=== PATIENT | male | born 1935 | race Caucasian/White ===

== ENCOUNTER 2016-07-24 11:05 | Inpatient (IN) | payer OTHER ==
[2016-07-24] VITALS (34 sets, daily range): BP systolic 81–137; BP diastolic 48–106
[~2016-07-24] VITALS: Ht 172.7 cm; Wt 117.0 kg
--- NOTE | ~2016-07-24 | EKG ---
[place] [address] [facility] [employer] [address] ELECTROCARDIOGRAM REPORT Name: EMMETT BASS Room #: 213-P [facility] IN M.R.#: [id number] Admission: 07/24/16 Attend Phys: Shai Nascimento MD Discharge: Date of : 35 Report #: [id number] THIS REPORT FOR: //name// [facility] Test Date: 2016-07-27 Test Time: 07:25:26 Pat Name: EMMETT BASS Department: Room: 213 Gender: M Punch Operator: SOULEYMANE : 1935 Requested By: Tracey Joshua Order Number: [id number] MD: Adriano Heaton Measurements Intervals [place] Rate: 100 P: NM: QRS: -30 QRSD: 162 T: 122 QT: 398 QTc: 514 Interpretive Statements Atrial fibrillation Ventricular premature complex IVCD, consider atypical LBBB Compared to ECG 07/24/2016 11:33:55 Ventricular premature complex(es) now present Electronically Signed On 07-28-2016 14:14:21 WHEEL MOLDER by dAriano Heaton [email or web address] <ELECTRONICALLY SIGNED> By: Adriano Heaton MD, [facility] 07/28/16 1414 4 4 Adriano Heaton MD, [facility] /EPI
--- NOTE | ~2016-07-24 | HC ---
[facility] [place] [address] CONSULTATION Name: EMMETT ABSS Room #: 245-P ADM IN .R.#: [id number] Admission: 07/24/16 Attend Phys: Shai Nascimento MD Discharge: Date of : 35 Report #: [id number] THIS REPORT FOR: //name// CC: Charlie Baldwin MD DATE OF SERVICE: 07/26/2016 SURGEON: Stone Haines M.D. REASON FOR CONSULTATION: Epistaxis. HISTORY OF PRESENT ILLNESS: The patient is an 81-year-old gentleman admitted on July 24 after a week or so of progressive weakness and rapid weight gain, felt secondary to fluid retention. The patient had tried to get up from his bed and became wedged between his bed and wall, unable to move. His called the nonemergent line for EMS who helped him moved to the car for transport to the hospital. The patient refused ambulance. He has been admitted and since admission has been having ongoing epistaxis. His nurse states that this has been a fair amount and relatively steady. His history is significant for epistaxis that he had seen my partner Dr. Baldwin in the office a week ago. An attempt was made to cauterize what the patient refused. He was treated with Bactroban ointment b.i.d. but despite this, this continued to bleed. The patient is anticoagulated on Xarelto and seems to be bleeding from both sides of the nose. He does not give a history of previous nasal trauma or nasal surgery. PAST MEDICAL HISTORY: Significant for hyperkalemia, acute renal failure, hypotension, chronic back pain, nonischemic cardiomyopathy, moderate aortic stenosis, hypertension and atrial fibrillation. PAST SURGICAL HISTORY: Cholecystectomy, bilateral knee replacement, shoulder surgery times 3, prostate surgery and AICD. MEDICATIONS: Contained in his MAR and were reviewed. ALLERGIES: To TIZANIDINE with confusion. REVIEW OF SYSTEMS: The patient is complaining of obstructive apnea. He has [facility] [address] [place] [address] CONSULTATION Name: EMMETT BASS Room #: 245-P [facility] IN ..#: [id number] Admission: 07/24/16 Attend Phys: Shai Nascimento MD Discharge: Date of : 35 Report #: [id number] with seeing him. He has obesity. He is complaining today of some back pain, was lying in bed in complaining of nasal bleeding. FAMILY HISTORY: Significant for cancer and hypertension. SOCIAL HISTORY: He lives with his . She is present in the room for history. The patient is a longtime smoker, quitting about a year ago. He does not use alcohol. Lives at home. PHYSICAL EXAMINATION: GENERAL: Shows a well-developed, obese 81-year-old male appearing his stated age. He is awake and alert. There is a CPAP unit on with a nasal mask. This was removed, so we could converse. VITAL SIGNS: Show a temperature of 98.2, pulse of 100, blood pressure 80/56 and the patient is on room air at 100%. HEENT: He is normocephalic. Pupils equal, round and reactive to light. Nasal exam shows a deviated septum to the right. Severe excoriation of both sides of the septum, left greater than right with active bleeding and blood clots in place. Oral cavity shows no mucosal lesions. There is some blood trickling in the posterior pharynx. Neck: Shows a midline trachea. There is no adenopathy or other masses. LABORATORY DATA: CBC shows a white count of 11,900 with a hemoglobin of 8.7 and this is decreased from admission of 9.4. Basic metabolic panel shows an elevated sodium of 150, potassium of 4.3, BUN of 71 and creatinine of 1.3. ASSESSMENT: 1. Epistaxis, bilateral, anterior. 2. Chronic anticoagulation with Xarelto. 3. Atrial fibrillation. 4. Aortic stenosis. 5. Chronic nonischemic cardiomyopathy. 6. Obesity. 7. Generalized weakness. 8. Acute kidney injury. PLAN: 1. Discussion with his in light of the extreme surface area of bleeding on both sides of the septum. The patient would be best treated by placement of Rapid Rhino epistaxis balloons for a period of 3-5 days to let this heal. The patient is currently on Xarelto and we will defer to his historic sites registrar if there are any other options for anticoagulation. The patient will need to be on any staphylococcal antibiotic coverage while balloons are in place. As the patient has no PENICILLIN allergies, I would suggest Unasyn 3 g q. 6. 2. Keep head of bed elevated. [address] [address] CONSULTATION Name: EMMETT BASS Room #: 245-P [facility] IN M.R.#: [id number] Admission: 07/24/16 Attend Phys: Shai Nascimento MD Discharge: Date of : 35 Report #: [id number] 3. The patient will need to switch from a nasal CPAP mask to a full CPAP mask while the nasal balloons are in place. We will plan to follow up in 3-5 days as long as a bleeding is controlled for removal. I appreciate the consultation and the ability to share in his care. <ELECTRONICALLY SIGNED> By: Stone Haines MD 07/27/16 1234 1553 2343 Stone Haines MD /nt
--- NOTE | ~2016-07-24 | EKG ---
[place] [address] [facility] [place] [place] [address] ELECTROCARDIOGRAM REPORT Name: EMMETT BASS Room #: 170-3 ADM IN M.R.#: [id number] Admission: 07/24/16 Attend Phys: Shai Nascimento MD Discharge: Date of : 35 Report #: [id number] THIS REPORT FOR: //name// [facility] ED Test Date: 2016-07-24 Test Time: 11:33:55 Pat Name: EMMETT BASS Department: Room: 170 Gender: M Director Of Software Engineering: MZOOK : 1935 Requested By: Ky Dubois Order Number: [id number] MD: Adriano Heaton Measurements Intervals [place] Rate: 84 P: 0 NC: 151 QRS: -39 QRSD: 158 T: 115 QT: 398 QTc: 471 Interpretive Statements Atrial fibrillation Left bundle branch block Compared to ECG 02/02/2016 10:55:21 Ventricular premature complex(es) no longer present Electronically Signed On 07-24-2016 12:53:05 ADOBE MAKER by Adriano Heaton [email or web address] <ELECTRONICALLY SIGNED> By: Adriano Heaton MD, [facility] 07/24/16 1253 1133 1133 Adriano Heaton MD, [facility] /EPI
--- NOTE | ~2016-07-24 | HC ---
[facility] [place] [address] CONSULTATION Name: EMMETT BASS Room #: 245-P ADM IN .R.#: [id number] Admission: 07/24/16 Attend Phys: Shai Nascimento MD Discharge: Date of : 35 Report #: [id number] THIS REPORT FOR: //name// CC: Charlie Nascimento DATE OF SERVICE: 07/24/2016 REASON FOR CONSULTATION: Elevated creatinine and acute kidney injury. HISTORY OF PRESENT ILLNESS: This is an 81-year-old male who was brought in by ambulance today with progressive weakness. He says he has felt poorly over the past week or so, has gotten tremendously worse over the past couple of days. He has got the so bad that he is unable to get up out of bed. He actually lodged himself next to his bed in between the wall earlier today and hence required the paramedics to extract him. Upon arrival in the emergency room, he was found to be very hypotensive. Blood pressures were recorded as low as 59/28 with some volume that has improved. He is now in the ICU and he has gotten 2.2 liters of IV fluids. He has also been put on Levophed at about 7 mcg per minute. He finally got a blood pressure of 102/60 with that. In talking to the patient, he is awake, alert and oriented. He says he has been feeling worse over the past week if not longer . He was having previous episodes of some congestive heart failure symptoms, we had been put on increased amount of diuretics and that appears to have helped. He has been breathing better and he has passed a lot of urine, but now over the past few days, he has been getting progressively weak. He is unaware of what his blood pressure has been running at home. He denies fevers, chills or sweats. He has some dyspnea even at rest. He denies chest pain. He says he has not been having any peripheral edema. He is unaware that if his AICD has discharged at all. From a renal standpoint, he is unaware of previous elevated creatinine levels. In reviewing his labs, he chronically runs creatinine level of about 1.3 to 1.4 and that has been present throughout the past 6 months or so. He did have a creatinine level up to 2.5 by June 26 on the lab we have available. He tells me years ago he had some kidney stones, but those were uncomplicated. He does not think he has had one for years. He has been documented on multiple scans to have acquired renal cysts. I have reviewed a couple of his CT scans from the recent year or so and show fairly atrophic renal parenchyma with several large required renal cysts. 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 This has never been diagnosed fully. Additionally, in talking with the patient, he has had some left low lateral abdominal pain as well as some left inguinal area pain. He says he does not feel like it did when he had previous kidney stones. He is unaware of dysuria. [facility] [address] [place] [address] CONSULTATION Name: EMMETT BASS Room #: 245-P ADM IN M.R.#: [id number] Admission: 07/24/16 Attend Phys: Shai Nascimento MD Discharge: Date of : 35 Report #: [id number] He is unaware of hematuria. PAST MEDICAL HISTORY: Severe cardiomyopathy. It looks like he has an ejection fraction of 35%. He had the AICD placed on 06/26/2016. He does have a chronic pain syndrome. He has previous cholecystectomy, bilateral shoulder surgery, bilateral knee replacement. He has obstructive sleep apnea, again has been on nasal BiPAP for at least 20 years if not longer. He has chronic atrial fib and his rhythm does appear to be irregular at this time. MEDICATIONS ON ADMISSION: Include torsemide 20 mg daily, spironolactone 25 mg daily, multivitamin daily, Entresto which is sacubitril/valsartan 24/26 mg b.i.d., Xarelto 15 mg daily, oxycodone for pain, multivitamin daily, Zyrtec 10 mg daily, carvedilol 12.5 mg b.i.d., aspirin 81 mg daily, allopurinol 300 mg daily. ALLERGIES: No known medical allergies. FAMILY HISTORY: Negative for any renal disease. SOCIAL HISTORY: The patient is . His helps with his medications and does most of his medical care related issues. 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 REVIEW OF SYSTEMS: Recently he has been more secondary. He denies chest pain or palpitations. He has dyspnea with an exertion. He has some dry cough. He has also had some recurring epistaxis and then coughs blood throat. Appetite has been down. He denies nausea or vomiting, no diarrhea. He tends towards constipation. He reports no dysuria, hematuria, or urinary urgency or frequency. He says he has not had much in the way of edema recently. He is unaware of fevers, chills or sweats. He denies use of any other medications other than those listed. PHYSICAL EXAMINATION: GENERAL: Elderly appearing male, currently awake, alert and oriented, although is somewhat lethargic and certainly appears to be acutely ill. VITAL SIGNS: Blood pressure 102/60, heart rate is 107, oxygen saturation 98%. HEENT: Shows pupils are equal and reactive. Sclerae nonicteric. Oral mucosa is dry. There are some dry blood around his lip and mouth. NECK: Shows no JVD. Neck is supple, see no adenopathy. CHEST: Show shallow respirations bilaterally. He has wearing his nasal CPAP. I hear no rales, rhonchi or wheezes. HEART: Has an irregular rhythm, no gallop. ABDOMEN: Has active bowel sounds, soft and nontender at this time. I cannot palpate organomegaly or masses. No evidence of hernia. EXTREMITIES: Show no peripheral edema. He has 1+ pedal pulses. [address] [address] CONSULTATION Name: EMMETT BASS Room #: 245-P ADM IN .R.#: [id number] Admission: 07/24/16 Attend Phys: Shai Nascimento MD Discharge: Date of : 35 Report #: [id number] LABORATORY DATA: Sodium 139, potassium 5.4, chloride 106, bicarbonate 18, BUN 160, creatinine 3.4, glucose 120, calcium 9.3. Troponin less than 0.04. INR is 1.3. White count 10.9, hemoglobin 10.9, hematocrit 28.5, platelets 104,000. Differential on the white count 83 neutrophils, 2 bands, 8 lymphs, 7 monos. Urinalysis collected but is pending at this time. RADIOLOGICAL STUDIES: 1. I reviewed his chest x-ray which showed clear lung keith bilaterally. 2. I reviewed his CT scan which showed kidney changes as noted above. ASSESSMENT: 1. Acute kidney injury. I think most of this is due to hypotension and hence renal under perfusion. With his very low blood pressure plus the combination of medications, he is not perfusing and certainly not clearing. 2. Hypotension, severe. He has gotten nearly 2.5 liters of fluids and blood pressures trending better, some Levophed was added and seemed to kick him over the top to an acceptable blood pressure. His volume status looks pretty good on exam at this time. He is certainly not volume overloaded, but we do not want to get him to that point either. At this point, we will keep him on moderate IV fluids and use the Levophed to help keep his pressure up. Also, in a patient with left renal mass, we need to be concerned about renal adrenal insufficiency. I will check his stat cortisol level. 3. Chronic kidney disease, likely stage 3. Again, he has substantial renal atrophy and multiple acquired renal cysts, none of which need to be addressed differently at this time. 4. Cardiomyopathy, chronic ejection fraction of 35% with a recent placement of an AICD. No ischemic changes at this time. 5. Hyperkalemia, mild. We will correct with additional volume loading. PLAN: 1. After the current liters in, we will cut his IV fluids down to 100 mL an hour. 2. Continue Levophed. 3. Check stat cortisol level. We will replace some cortisol, pending his response in the near term. 4. Recheck labs to make sure his potassium level is coming down. 5. I expect now that his volumes are better, the Levophed will be effective. I would note he is not septic or infected at this time. 6. We will follow along closely in the care of this patient. <ELECTRONICALLY SIGNED> By: Francis Be MD 07/25/16 0854 1828 2351 Francis Be MD /nt
--- NOTE | ~2016-07-24 | 2DMMODE ---
[facility] [place] [address] 2 D/M-MODE ECHOCARDIOGRAM Name: EMMETT BASS Room #: 245-P [facility] IN .#: [id number] Admission: 07/24/16 Attend Phys: Shai Nascimento MD Discharge: Date of : 35 Date of Service: 07/26/16 1504 Report #: [id number] THIS REPORT FOR: //name// Transthoracic Echocardiography Ordering physician: Tracey Joshua Referring physician: MD Maeve Benavides, Tracey Shankar [employer] Assistant: Cherrie Adams Indications/History: Nonischemic cardiomyopathy. Hx: Pacemaker/ICD, HTN, Afib, cardiomyopathy 25-30% 01/2016. BP: 80 / 56 HR: 97bpm Height: 68in Weight: 254.5lb Study data: M-mode, complete 2D, complete spectral Doppler, and color Doppler. Location: Bedside. Routine. Image quality was poor. 2D measurements Normal Normal LVID ED 65.3mm 36-57 IVS ED 10.8mm 6-11 LVID ES 58.6mm 23-40 LVPW ED 11.1mm 6-11 LA volume 64ml/m2 16-28 AoRoot diam 39.9mm 21-37 index ED LVOT diameter 25mm 18-23 Findings: Left ventricle: The cavity size was moderately dilated. Wall thickness was normal. Systolic function was severely reduced. The estimated ejection fraction was in the range of 25% to 30%. Right ventricle: The cavity size was dilated. Systolic function was normal. Right atrium: The atrium was moderately dilated. Pacer wire or catheter noted in right atrium. Left atrium: The atrium was severely dilated. Volume index: 64ml/m2 (S). Aortic valve: Structurally normal valve. Moderately sclerotic leaflets. Doppler: There was no stenosis. [facility] [address] [place] [address] 2 D/M-MODE ECHOCARDIOGRAM Name: EMMETT BASS Room #: 245-P [facility] IN Lanre#: [id number] Admission: 07/24/16 Attend Phys: Shai Nascimento MD Discharge: Date of : 35 Date of Service: 07/26/16 1504 Report #: [id number] Moderate regurgitation. Peak velocity: 204.3cm/s (S). Peak gradient: 16.7mm Hg (S). Mitral valve: Mildly thickened leaflets . Doppler: There was no evidence for stenosis. Mild to moderate regurgitation. Peak E-wave velocity: 85.3cm/s. Peak gradient: 2.9mm Hg (D). Tricuspid valve: Structurally normal valve. Doppler: There was no evidence for stenosis. Moderate regurgitation. Regurgitant peak velocity: 228cm/s. Peak RV-RA gradient: 21mm Hg (S). Pulmonic valve: Structurally normal valve. Doppler: There was no evidence for stenosis. No regurgitation. Pericardium: There was no pericardial effusion. 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 Ascending aorta was dilated at 4.1cm, Pulmonary artery: Systolic pressure was estimated to be 36mm Hg. Diastolic function: The study is not technically sufficient to allow evaluation of LV diastolic function. Systemic veins: Inferior vena cava: The vessel was dilated; respirophasic changes in dimension were absent. Conclusions 1. Procedure narrative: Image quality was poor. 2. Left ventricle: The cavity size was moderately dilated. Wall thickness was normal. Systolic function was severely reduced. The estimated ejection fraction was in the range of 25% to 30%. 3. Right ventricle: The cavity size was dilated. 4. Right atrium: The atrium was moderately dilated. Pacer wire or catheter noted in right atrium. 5. Left atrium: The atrium was severely dilated. 6. Aortic valve: Structurally normal valve. Moderately sclerotic leaflets. Moderate regurgitation. 7. Mitral valve: Mildly thickened leaflets . Mild to moderate regurgitation. 8. Tricuspid valve: Structurally normal valve. Moderate regurgitation. 9. 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 Ascending aorta was dilated at 4.1cm, 10. Pulmonary arteries: Systolic pressure was estimated to be 36mm Hg. [facility] [place] [address] 2 D/M-MODE ECHOCARDIOGRAM Name: EMMETT BASS Room #: 245-P [facility] IN [facility]#: [id number] Admission: 07/24/16 Attend Phys: Shai Nascimento MD Discharge: Date of : 35 Date of Service: 07/26/16 1504 Report #: [id number] 11. Inferior vena cava: The vessel was dilated; respirophasic changes in dimension were absent. <ELECTRONICALLY SIGNED> By: Zachary Mulligan MD 07/26/16 1621 1504 162 Zachary Mulligan MD /rudy
--- NOTE | ~2016-07-24 | HC ---
[facility] [place] [address] CONSULTATION Name: EMMETT BASS Room #: 215-P [facility] IN ..#: [id number] Admission: 07/24/16 Attend Phys: Shai Nascimento MD Discharge: 07/31/16 Date of : 35 Report #: [id number] THIS REPORT FOR: //name// CC: Charlie Nascimento HISTORY OF PRESENT ILLNESS: The patient is an 81-year-old white male who was admitted with significant weakness, unable to get up off the ground at home. He was noted to have significantly worsening generalized weakness and increased weight gain. He was admitted and noted to have severe hypotension, acute renal failure, and hyperkalemia. He was thought to have acute renal failure secondary to the severe hypotension. Nephrology is involved and he has shown improvement now with improved urine output and decrease in his creatinine. He also notes complaints of significant nose bleeding. We are seeing him in rehabilitation medicine consultation. PAST MEDICAL HISTORY: Includes nonischemic cardiomyopathy, recent AICD, chronic kidney disease, obstructive sleep apnea on CPAP, he has had bilateral knee replacements, bilateral shoulder repairs, and cholecystectomy. MEDICATIONS: Please see the full medication listing. SOCIAL HISTORY: Lives in a house with his , 2 steps in, minimal community ambulator. He tended to stay in the house and used a cane. He was able to dress himself, although most recently the has had to give him some assistance. REVIEW OF SYSTEMS: Did not offer any current complaints of chest pain, shortness of breath, or abdominal discomfort. He does complain of the nose bleeding as noted above. PHYSICAL EXAMINATION: GENERAL: He is a pleasant 81-year-old white male, in no obvious distress. He is alert and appropriate. He has a suction and actually pulled out a fairly large clot from his left naris while I was talking with he and his . He is in no distress. VITAL SIGNS: Last recorded temperature 98.2, pulse 104, respirations 22, and blood pressure 106/72. EXTREMITIES: He has functional range of motion of both upper extremities, strength is grade 3+ to 4-/5. Lower extremities, no focal calf swelling, functional range of motion, strength is grade 4-/5-3+/5. Tone appeared to be intact. He was min assist with sit to stand. Gait was min assist, handheld 2 steps. He sat on the edge of bed for 8 minutes. ASSESSMENT: An 81-year-old white male with the following problem list: 1. Medical complexity with generalized debilitation. 2. Severe hypotension that has improved. [address] [address] CONSULTATION Name: EMMETT BASS Room #: [facility].#: [id number] Admission: 07/24/16 Attend Phys: Shai Nascimento MD Discharge: 07/31/16 Date of : 35 Report #: [id number] 3. Acute renal failure with hyperkalemia. 4. Nonischemic cardiomyopathy. 5. Epistaxis. The patient is on rivaroxaban. Apparently, he was recently seen an ENT. Discussion was held with the patient's nurse. 6. Obstructive sleep apnea, on CPAP. 7. Chronic back pain. PLAN: Therapies to continue working with him on functional mobility and ADLs. He may be a candidate for a short acute in-hospital inpatient rehabilitation stay to further maximize his functional mobility, strength, and independence. Discussion with the patient and his . We will continue to follow along with them as he further medically stabilizes. Thank you for asking us to assist in this patient's care. <ELECTRONICALLY SIGNED> By: Charlie Gilmore MD 08/13/16 1617 1238 1519 Charlie Gilmore MD /nt
--- NOTE | ~2016-07-24 | D ---
[facility] [place] [address] DISCHARGE SUMMARY Name: EMMETT BASS Room #: 215-P [facility] IN ..#: [id number] Admission: 07/24/16 Attend Phys: Shai Nascimento MD Discharge: 07/31/16 Date of : 35 Report #: [id number] THIS REPORT FOR: //name// CC: Charlie Nascimento DATE OF SERVICE: 07/31/2016 DISCHARGE DIAGNOSES: 1. Acute kidney injury of chronic kidney disease, now stable. 2. Hypertension secondary to above and mets. 3. Epistaxis, now resolved. 4. Acute blood loss anemia with underlying chronic anemia. 5. Nonischemic cardiomyopathy with ejection fraction of 30%. 6. Chronic atrial fibrillation. 7. Obstructive sleep apnea. 8. Chronic back pain. CONSULTATIONS: Renal, Dr. Be; ENT, Dr. Haines; Cardiology, Dr. Richardson. PROCEDURES: None. HOSPITAL COURSE: The patient is an 81-year-old male with a history of nonischemic cardiomyopathy, chronic AFib, presented to the ER secondary to generalized weakness. Please see details of admission dictated by on July 24. On admission, the patient was found to have anemia of 9.4. Additionally he was found to have a pressure of 71 and an elevated creatinine of 3.4. He recently had his cardiac meds adjusted including taking Aldactone, torsemide, Entresto, and Coreg. The patient was admitted and renal and cardiology were consulted. The patient was started on Levophed as well as cautious hydration. For details of the hospital course, please see [facility] as he was here for a prolonged stay. The patient also had some epistaxis and ENT was consulted. He had packing placed and subsequently removed without any complications. During the hospital course, he still had some issues with hypertension and his blood pressure medications and his diuretics were held intermittently. He did develop chronic leg swelling because of that but his renal function did improve. On discharge, he was feeling much better despite his marginal blood pressure issues. His creatinine also had improved to 2.3. He was restarted on his diuretic, but again it was intermittently held. He is cleared for discharge by consultants and was agreeable to going to rehab. A few other things that were done during the hospital course, he had an ultrasound of the abdomen that showed right liver mass consistent with complex cyst and a chest x-ray that was negative. [address] [address] DISCHARGE SUMMARY Name: EMMETT BASS Room #: 215-P [facility] IN [facility]#: [id number] Admission: 07/24/16 Attend Phys: Shai Nascimento MD Discharge: 07/31/16 Date of : 35 Report #: [id number] DISCHARGE DISPOSITION: To rehab. DISCHARGE PHYSICAL EXAMINATION: VITAL SIGNS: Temperature of 36.3, pulse 74, blood pressure 121/67, O2 sat 97% on room air. GENERAL: He is awake, alert, answering questions appropriately, no acute respiratory distress. HEENT: Normocephalic, atraumatic. Pupils equal. NECK: Supple. CARDIOVASCULAR: Regular rate and rhythm. No murmurs. LUNGS: Clear to auscultation bilaterally. No crackles or wheeze. ABDOMEN: Soft, obese. No distention or tenderness. EXTREMITIES: 2+ pitting edema bilaterally which he indicates has been chronic for him. NEUROLOGIC: Nonfocal. DISCHARGE MEDICATIONS: Coreg 6.25 b.i.d., amiodarone 400 b.i.d. to be tapered down, oxymetazoline spray, nystatin , multivitamin daily, aspirin 81 daily, Zyrtec 10 daily, torsemide 20 daily, Xarelto 15 daily, PreserVision 1 b.i.d., OxyIR p.r.n. DIET: Low sodium, heart healthy, fluid restricted diet. ACTIVITY: As tolerated. FOLLOWUP: Follow up BMP and CBC in 1 week. Follow up with cardiology in 1 week. Follow up with renal in 1 week. Follow up with primary care in 1 week and to seek immediate medical attention if symptoms worsen, recur or if he has any significant medical concerns. Discharge planning took 50 minutes explaining the discharge diagnoses, treatment plan and appropriate followup in detail. He had no further questions. <ELECTRONICALLY SIGNED> By: Margaret Quigley MD 09/23/16 1053 [id number] Margaret Quigley MD /nt
[~2016-07-24 11:05] MED LIST: ALDACTONE25 MG PO; ALLOPURINOL 30300 M2 PO; ASPIR-LOW81 MG PO; CARVEDILOL25 MG PO; CENTRUM SILVER1 EAC2 PO; COUMADIN 5 MG TA5 M1 PO; DEMADEX 2020 MG/1 TA PO; DEMADEX20 MG PO; ENTRESTO 24 MG1 EACH PO; FLOMAX0.4 MG PO; LASIX 40 MG TAB40 M2 PO; LISINOPRIL10 MG PO; MELOXICAM7.5 MG PO; NORCO 5-325 TA1 EACH PO; PRESERVISION A1 EAC2 PO; VALIUM2 MG PO; XARELTO15 MG PO; ZYRTEC10 M5 PO
[2016-07-24 11:33] LABS: HEMATOCRIT 28.5 % (42.0-52.0); HEMOGLOBIN 9.4 gm/dL (14.0-18.0); MCH 34.3 pg (26.0-34.0); MCHC 32.9 % (28.0-37.0); PLATELET COUNT 125 thou/uL (150-400); RBC 2.74 mil/uL (4.50-6.00); RDW 17.5 % (10.5-14.5); WBC 10.9 thou/uL (4.0-11.0)
[2016-07-24 11:42] LABS: CALCIUM 9.3 mg/dL (8.5-10.1); CREATININE 3.4 mg/dL (0.6-1.3); POTASSIUM 5.4 mmol/L (3.5-5.1)
[2016-07-24] MEDS ORDERED: OXYCODONE HCL 55 MG PO (11:42)
[2016-07-24 11:45] LABS: MANUAL DIFF YES
[2016-07-24 11:46] LABS: INR 1.3
[2016-07-24 12:13] LABS: ABSOLUTE NEUTROPHILS 9.3 thou/uL (1.4-8.2); ANISOCYTOSIS 1+; MACROCYTES 1+; TOTAL CELL COUNT 100
[2016-07-24 18:22] LABS: URINE BILIRUBIN NEGATIVE (Negative); URINE BLOOD TRACE (Negative); URINE COLOR YELLOW; URINE GLUCOSE-RANDOM* NEGATIVE (Negative); URINE KETONES NEGATIVE (Negative); URINE NITRITE NEGATIVE (Negative); URINE PROTEIN (DIPSTICK) NEGATIVE (Negative); URINE UROBILINOGEN 0.2 E.U./dl (0.2-1.0)
[2016-07-25] VITALS (74 sets, daily range): BP systolic 57–123; BP diastolic 27–97
[2016-07-25 06:34] LABS: HEMATOCRIT 24.5 % (42.0-52.0); HEMOGLOBIN 8.2 gm/dL (14.0-18.0); MCH 34.6 pg (26.0-34.0); MCHC 33.6 % (28.0-37.0); MCV 102.8 fL (80.0-100.0); RBC 2.39 mil/uL (4.50-6.00); RDW 17.3 % (10.5-14.5); WBC 6.5 thou/uL (4.0-11.0)
[2016-07-25 06:42] LABS: CALCIUM 8.5 mg/dL (8.5-10.1)
[2016-07-25 07:06] LABS: CREATININE 2.2 mg/dL (0.6-1.3); POTASSIUM 4.3 mmol/L (3.5-5.1)
[2016-07-25 19:08] LABS: URINE CREATININE-RANDOM* 23.8 mg/dL (Not Estab.)
[2016-07-26] VITALS (71 sets, daily range): BP systolic 54–140; BP diastolic 36–121
[2016-07-26 06:35] LABS: HEMATOCRIT 26.3 % (42.0-52.0); HEMOGLOBIN 8.7 gm/dL (14.0-18.0); MCH 34.4 pg (26.0-34.0); MCHC 32.9 % (28.0-37.0); MCV 104.3 fL (80.0-100.0); PLATELET COUNT 144 thou/uL (150-400); RBC 2.52 mil/uL (4.50-6.00); RDW 17.5 % (10.5-14.5); WBC 11.9 thou/uL (4.0-11.0)
[2016-07-26 06:38] LABS: MANUAL DIFF YES
[2016-07-26 07:05] LABS: CREATININE 1.3 mg/dL (0.6-1.3); MAGNESIUM 1.8 mg/dL (1.8-2.4); POTASSIUM 4.3 mmol/L (3.5-5.1)
[2016-07-26 07:31] LABS: PLATELET ESTIMATE SLIGHTLY DECREASED; TOTAL CELL COUNT 100
[2016-07-26 07:32] LABS: ANISOCYTOSIS 1+; MACROCYTES 1+; OVALOCYTES OCCASIONAL; POIKILOCYTOSIS SLIGHT
[2016-07-27] VITALS (30 sets, daily range): BP systolic 84–116; BP diastolic 50–79
[2016-07-27 05:43] LABS: ALBUMIN 2.5 g/dL (3.4-5.0); CALCIUM 8.8 mg/dL (8.5-10.1); CREATININE 1.2 mg/dL (0.6-1.3); PHOSPHORUS 2.1 mg/dL (2.5-4.9)
[2016-07-28 04:34] VITALS: BP 98/62
[2016-07-28 04:49] LABS: ALBUMIN 2.6 g/dL (3.4-5.0); CREATININE 1.7 mg/dL (0.6-1.3); PHOSPHORUS 2.1 mg/dL (2.5-4.9); POTASSIUM 4.6 mmol/L (3.5-5.1)
[2016-07-28 10:00] VITALS: BP 97/57
[2016-07-28 13:15] VITALS: BP 102/63
[2016-07-28 17:05] VITALS: BP 96/62
[2016-07-28 19:59] VITALS: BP 99/58
[2016-07-29 00:17] VITALS: BP 111/75
[2016-07-29 04:05] LABS: HEMATOCRIT 25.7 % (42.0-52.0); HEMOGLOBIN 8.6 gm/dL (14.0-18.0); MCH 34.5 pg (26.0-34.0); MCHC 33.5 % (28.0-37.0); MCV 102.7 fL (80.0-100.0); PLATELET COUNT 195 thou/uL (150-400); RDW 18.3 % (10.5-14.5); WBC 9.2 thou/uL (4.0-11.0)
[2016-07-29 04:16] LABS: ALBUMIN 2.7 g/dL (3.4-5.0); CALCIUM 9.1 mg/dL (8.5-10.1); PHOSPHORUS 2.2 mg/dL (2.5-4.9); POTASSIUM 4.4 mmol/L (3.5-5.1); TOTAL BILIRUBIN 0.6 mg/dL (<0.1-1.0); TOTAL PROTEIN 6.3 g/dL (6.4-8.2)
[2016-07-29 04:19] VITALS: BP 105/72
[2016-07-29 04:33] LABS: MANUAL DIFF YES
[2016-07-29 06:32] LABS: ABSOLUTE NEUTROPHILS 7.7 thou/uL (1.4-8.2); TOTAL CELL COUNT 100
[2016-07-29 07:35] VITALS: BP 96/57
[2016-07-29 11:35] VITALS: BP 104/73
[2016-07-29 16:20] VITALS: BP 111/69
[2016-07-29 20:47] VITALS: BP 90/57
[2016-07-30 03:34] LABS: HEMATOCRIT 25.6 % (42.0-52.0); HEMOGLOBIN 8.6 gm/dL (14.0-18.0); MCH 34.9 pg (26.0-34.0); MCHC 33.6 % (28.0-37.0); MCV 103.8 fL (80.0-100.0); RBC 2.47 mil/uL (4.50-6.00); RDW 17.8 % (10.5-14.5); WBC 8.3 thou/uL (4.0-11.0)
[2016-07-30 03:45] LABS: ALBUMIN 2.7 g/dL (3.4-5.0); CALCIUM 8.9 mg/dL (8.5-10.1); CREATININE 2.3 mg/dL (0.6-1.3); PHOSPHORUS 2.7 mg/dL (2.5-4.9); POTASSIUM 4.6 mmol/L (3.5-5.1)
[2016-07-30 04:10] VITALS: BP 100/52
[2016-07-30 07:30] VITALS: BP 102/70
[2016-07-30 11:45] VITALS: BP 162/63; BP 87/59
[2016-07-30 16:59] VITALS: BP 97/63
[2016-07-30 17:00] VITALS: BP 97/63
[2016-07-30 20:23] VITALS: BP 84/55
[2016-07-31 02:09] VITALS: BP 90/60
[2016-07-31 03:59] LABS: HEMATOCRIT 24.6 % (42.0-52.0); HEMOGLOBIN 8.1 gm/dL (14.0-18.0); MCH 34.5 pg (26.0-34.0); MCV 104.7 fL (80.0-100.0); RBC 2.35 mil/uL (4.50-6.00); RDW 17.8 % (10.5-14.5); WBC 6.8 thou/uL (4.0-11.0)
[2016-07-31 04:10] LABS: ALBUMIN 2.5 g/dL (3.4-5.0); CALCIUM 8.7 mg/dL (8.5-10.1); CREATININE 2.3 mg/dL (0.6-1.3); PHOSPHORUS 3.5 mg/dL (2.5-4.9); POTASSIUM 4.1 mmol/L (3.5-5.1)
[2016-07-31 04:34] VITALS: BP 99/67
[2016-07-31 07:52] VITALS: BP 102/63
[2016-07-31 11:40] VITALS: BP 121/67
[2016-07-31] MEDS ORDERED: CARVEDILOL6.25 MG PO (12:56)
[2016-07-31] MEDS ORDERED: PACERONE 200 M200 M1 PO (12:58)
[2016-07-31] MEDS ORDERED: NASAL DECONGEST30 ML NASAL (12:58)
[2016-07-31] MEDS ORDERED: NYSTATIN-TRIAMC15 GM TOP (12:58)
[2016-07-31 16:09] LABS: % SATURATION 30 % (15-55); IRON 52 ug/dL (38-169); TIBC 173 ug/dL (250-450); UIBC 121 ug/dL (111-343)
[2016-08-20] MEDS ORDERED: PACERONE 200 M200 M1 PO (11:22)
[2016-09-09] MEDS ORDERED: ALLOPURINOL 30300 M2 PO (17:23)
== END 2016-07-31 14:46 | DRG 682 ==
LOC: ER 11:05 → ICU 12:40 → EROBS 12:40 → ICU 14:08 → 2N 07-27 15:05
PROVIDERS: Emergency Medicine; Family Medicine; Hospitalist; Internal Medicine Nephrology; Nurse Practitioner; Nurse Practitioner Family
PROC: 5A09557 Assistance with Respiratory Ventilation, Greater than 96 Consecutive Hours, Continuous Positive Airway Pressure (ICD-10-PCS; principal; 2016-07-26)
DX: N17.0 Acute kidney failure with tubular necrosis (principal); E43 Unspecified severe protein-calorie malnutrition; I42.8 Other cardiomyopathies; E87.0 Hyperosmolality and hypernatremia; E87.2 Acidosis; I12.9 Hypertensive chronic kidney disease with stage 1 through stage 4 chronic kidney disease, or unspecified chronic kidney disease; E87.5 Hyperkalemia; N18.4 Chronic kidney disease, stage 4 (severe); G47.33 Obstructive sleep apnea (adult) (pediatric); I35.0 Nonrheumatic aortic (valve) stenosis; N28.1 Cyst of kidney, acquired; I48.2 Chronic atrial fibrillation; G89.29 Other chronic pain; D64.9 Anemia, unspecified; I95.9 Hypotension, unspecified; M54.9 Dorsalgia, unspecified; R04.0 Epistaxis; E66.9 Obesity, unspecified; Z96.653 Presence of artificial knee joint, bilateral; Z68.39 Body mass index [BMI] 39.0-39.9, adult; Z87.891 Personal history of nicotine dependence; Z90.49 Acquired absence of other specified parts of digestive tract; Z79.01 Long term (current) use of anticoagulants; Z95.810 Presence of automatic (implantable) cardiac defibrillator; Z88.8 Allergy status to other drugs, medicaments and biological substances; Z80.8 Family history of malignant neoplasm of other organs or systems; Z82.49 Family history of ischemic heart disease and other diseases of the circulatory system
CPT/HCPCS: 10078; 10081

== ENCOUNTER 2016-07-31 12:24 | Inpatient (IN) | payer OTHER ==
[~2016-07-31] VITALS: Ht 172.7 cm; Wt 122.2 kg
--- NOTE | ~2016-07-31 | H ---
[facility] [place] [place] [address] HISTORY AND PHYSICAL Name: EMMETT BASS Room #: 512-P ADM IN M.R.#: [id number] Admission: 07/31/16 Attend Phys: Charlie Gilmore MD Discharge: Date of : 35 Report #: [id number] THIS REPORT FOR: //name// CC: Charlie Mcfarlane DATE OF SERVICE: 07/31/2016 ADMITTING PHYSICIAN: Dr. Charlie Gilmore. REFERRING PHYSICIAN: Dr. Shai Nascimento. REASON FOR ADMISSION: Mobility and self-care deficits related to cardiopulmonary debilitation. HISTORY OF PRESENT ILLNESS: The patient is a very pleasant 81-year-old right hand dominant male admitted to [facility] on 07/24/2016 with weakness. He is a patient of Dr. Segovia. On admission, he was very weak and could not stand up. He was brought to the Emergency Department and a workup was initiated. He was diagnosed with hypotension, hyperkalemia and acute renal failure. He has been anemic and today his hemoglobin is 7.6. He has been treated for atrial fibrillation, volume depletion, nonischemic cardiomyopathy and a metabolic acidosis. It was determined that he would benefit from an acute inpatient rehabilitation admission due to a severe decline in his overall function. He is now being admitted to the rehabilitation program at [facility] under the service of Dr. Charlie Gilmore. I am covering for Dr. Gilmore today and therefore completing this history and physical for him. PAST MEDICAL HISTORY: As above, also pertinent for nonischemic cardiomyopathy, chronic low back pain, and elevated BMI at 39.7. Permanent atrial fibrillation, hypertension, obstructive sleep apnea. ALLERGIES: TIZANIDINE. MEDICATIONS: Reviewed. I note that he is receiving Xarelto. Please see the written documentation of history and physical for further details. PAST SURGICAL HISTORY: Cholecystectomy, bilateral knee replacement, shoulder surgeries x 3, prostate surgery, AICD placement. FAMILY HISTORY: Positive for cancer and hypertension. SOCIAL HISTORY: He lives with his . They have two steps to get inside their home. He is a former smoker and quit greater than a year ago. [facility] [address] [place] [address] HISTORY AND PHYSICAL Name: EMMETT BASS Room #: 512-P [facility] IN ..#: [id number] Admission: 07/31/16 Attend Phys: Charlie Gilmore MD Discharge: Date of : 35 Report #: [id number] FUNCTIONAL HISTORY: Before admission, he walked without an assistive device. He drives a car. REVIEW OF SYSTEMS: As above. Specifically, he does not wear glasses, hearing aids or dentures. He denies chest pain, shortness of breath. He complains of weakness. Otherwise, the remainder of a 12-point review was negative except for what was stated above. PHYSICAL EXAMINATION: GENERAL: No acute distress, well-developed, well-nourished. VITAL SIGNS: Afebrile. CARDIOVASCULAR: S1, S2. LUNGS: Clear to auscultation. ABDOMEN: Soft, nontender, nondistended. EXTREMITIES: Calves are nontender. LYMPHATICS: No cervical adenopathy. MUSCULOSKELETAL: Functionally he shows a foot drop on the left side. He has 2+/5 strength with dorsiflexion of the left foot. He has 5/5 dorsiflexion of the right foot. His tone is within normal limits. There is no muscle atrophy. He has a good sitting tolerance. NEUROLOGIC/PSYCHIATRIC: Coordination is fair. Muscle stretch reflexes are 1/4 and symmetric. Sensation is diminished in his feet bilaterally. He was alert. He is able to answer my questions. He was pleasant and cooperative with the exam. There is no wet or gurgling quality to his voice. No dysarthria or aphasia. IMPRESSION: Mobility and self-care deficits in an 81-year-old righthand dominant male secondary to 1. Cardiopulmonary debility. 2. Left foot drop. 3. Chronic low back pain. 4. Nonischemic cardiomyopathy. 5. Hypotension 6. Anemia, likely renal etiology. 7. Atrial fibrillation. 8. Moderate aortic stenosis. PLAN: 1. Admit to the rehabilitation unit for comprehensive therapies. 2. Discussed the inpatient rehabilitation program in detail with him and his . Also, develop the inpatient rehabilitation program with the interdisciplinary rehabilitation team. 3. Please see the plan of care, post-admission physician evaluation and admission orders. For full details of his rehabilitation care and plan. 4. Monitor his blood pressure closely for symptoms. Hold therapy if becomes [address] [address] HISTORY AND PHYSICAL Name: EMMETT BASS Room #: 512-P [facility] IN ..#: [id number] Admission: 07/31/16 Attend Phys: Charlie Gilomre MD Discharge: Date of : 35 Report #: [id number] dizzy or lightheaded. 5. Monitor hemoglobin closely for therapy services. Currently, his hemoglobin is 7.6, but he is asymptomatic. He is up with one assist with 1 person assist and tolerating this well. 6. In regards to the left foot drop, recommend an EMG nerve conduction study in one month to better evaluate causation. He may benefit from the use of an AFO during his rehabilitation stay. We discussed this at the bedside. 7. May try compression hose, ankle pumps and extended time prior to standing up for orthostatic hypotension issues. POST-ADMISSION PHYSICIAN EVALUATION, HISTORY AND PHYSICAL: 1. There have been no significant changes since the preadmission screen was performed. The patient has had no changes to his functional status. Medical status or comorbidities. 2. He is medically appropriate for the inpatient rehabilitation program. He has several comorbidities including obesity, hypotension, acute kidney injury, nonischemic cardiomyopathy, atrial fibrillation that needs to be monitored, moderate aortic stenosis, left foot drop, chronic low back pain with possible lumbar stenosis and lumbar radiculopathy at the L5 level. In addition to this, he also has a metabolic acidosis, which has been followed closely. He has shown the ability to tolerate therapies and is estimated that he will achieve his therapeutic goals within 7-10 days. He has appropriate discharge goals back to home with his . It is anticipated that he will be able to return home with her within this timeframe. OVERALL PLAN OF CARE: 1. His estimated length of stay is approximately 7-10 days. He has a good medical prognosis for recovery. He does have multiple medical issues as outlined above. It is anticipated that he will have physical therapy and occupational therapy and rehabilitation nursing services during his stay. His anticipated functional outcome is modified independent with both mobility and activities of daily living. His discharge destination is home with his . 2. The expected therapy intensity is 3 hours of therapy per day with a frequency of 5 days per week. The duration of his therapies will be a total of approximately 10 days during his inpatient rehabilitation stay. <ELECTRONICALLY SIGNED> By: Juvenal Fernandez DO 08/02/16 [phone] [id number] Juvenal Fernandez DO /nt
--- NOTE | ~2016-07-31 | HC ---
[facility] [place] [address] CONSULTATION Name: EMMETT BASS Room #: 512-P [facility] IN M.R.#: [id number] Admission: 07/31/16 Attend Phys: Charlie Gilmore MD Discharge: Date of : 35 Report #: [id number] THIS REPORT FOR: //name// CC: Charlie Mcfarlane DATE OF SERVICE: 08/02/2016 AGE: 81. ATTENDING PHYSICIAN: Charlie Gilmore MD CONSULTANTS: Marc Mckenzie, Ph.D. DATE OF CONSULTATION: 08/02/2016 CLINICAL PRESENTATION: The patient is an 81-year-old male admitted to the [facility] rehabilitation unit for a comprehensive inpatient rehabilitation program to improve functional mobility and activities of daily living and self-care secondary to impairment from medical complexity and general debility. He is reported to have been living at home with his when he experienced a gradual deterioration in functioning to the extent that hospitalization was necessary. He carries a past medical history of nonischemic cardiomyopathy, chronic low back pain, atrial fibrillation, hypertension and obstructive sleep apnea. The patient was hospitalized at [facility] in January of 2016 and had not been able to recover his previous level of functioning since that time. His medications are reported to include nystatin, torsemide, aspirin, multivitamin with minerals, amiodarone, albuterol, loratadine, carvedilol, rivaroxaban, oxycodone, oxymetazoline, bisacodyl, sennosides, docusate and acetaminophen. A complete description of his medical condition, history and medications can be found in his medical record. Neuropsychological consultation was requested to provide assistance in the assessment of cognitive and emotional status and to provide recommendations and services. Prior to this most recent medical event, he was living independently with his in their home. The patient has 1 child. 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 He is described as having been independent up until January of 2016 at which time he has required increasing assistance to maintain community living. He had 1 sister that is . TECHNIQUES UTILIZED: Clinical interview, review of medical records, staff consultation and behavioral observation, mini mental status exam 2 standard version and clock drawing. [address] [address] CONSULTATION Name: EMMETT BASS Room #: 512-P [facility] IN [facility].#: [id number] Admission: 07/31/16 Attend Phys: Charlie Gilmore MD Discharge: Date of : 35 Report #: [id number] EXAMINATION FINDINGS: The patient was alert and cooperative with the assessment. There is no evidence of aphasia. He does not report auditory or visual hallucinations. He was tearful at times during the assessment. He denies subjective anxiety or depression. He does indicate increasing apprehension about his condition and his lack of ability to engage in activities of former interest suggested depression. The patient also reports diminished sensitivity to taste and smell. His appetite has been diminished. His symptoms are reported to include sleep disturbance, decreased appetite, tiredness and fatigue during the day and intermittent difficulty with memory. He and his do not indicate trouble with word finding or naming. His performance on the MMSE 2 brief version was extremely low with a raw score of 11/16. He was 3/3 for initial registration, 5/5 for orientation to time and 3/[address]. He was 0/3 for immediate recall of 3 items after a brief time delay and distraction. However, he was 3/3 when given multiple choice options. Performance on the MMSE 2 standard version suggests mild impairment with a raw score at 23/30, which is a T score of 36 and percentile rank of 8. He was 4/5 for serial sevens, 2/2 for naming, 1/1 for repetition. He was 3/3 for auditory comprehension. He could read and follow single command and write a sentence. The patient was unable to accurately draw or reproduce a simple design. Difficulty with hand placement on clock drawing is also noted. DIAGNOSTIC IMPRESSION: Depressive disorder, unspecified. Mild neurocognitive disorder, without behavior disorder, unspecified. RECOMMENDATIONS: The patient may benefit from the use of antidepressant medication. Verbal praise and complements about participation in therapies and encouragement to engage in activities of former interest will also assist in improving his mood. The patient would also benefit from directly focused strategies to assist with memory and concentration. Return to driving would be a safety issue at this time. Thank you very much for allowing me to provide the consultation on this patient. <ELECTRONICALLY SIGNED> By: Marc Mckenzie, PhD 08/03/16 1539 [id number] Marc Mckenzie, PhD /nt
[~2016-07-31 12:24] MED LIST changes: +OXYCODONE HCL 55 MG PO
[2016-07-31] MEDS ORDERED: CARVEDILOL6.25 MG PO (12:56)
[2016-07-31] MEDS ORDERED: NYSTATIN-TRIAMC15 GM TOP (12:58)
[2016-07-31] MEDS ORDERED: NASAL DECONGEST30 ML NASAL (12:58)
[2016-07-31] MEDS ORDERED: PACERONE 200 M200 M1 PO (12:58)
[2016-07-31 15:00] VITALS: BP 101/62
[2016-07-31 20:50] VITALS: BP 89/58
[2016-08-01 04:19] VITALS: BP 79/54
[2016-08-01 04:44] LABS: ABSOLUTE NEUTROPHILS 4.1 thou/uL (1.4-8.2); BASOPHILS 0.6 % (0.0-2.0); EOSINOPHILS 4.1 % (0.0-3.0); HEMATOCRIT 22.7 % (42.0-52.0); HEMOGLOBIN 7.6 gm/dL (14.0-18.0); LYMPHOCYTES 13.4 % (24.0-44.0); MCH 34.7 pg (26.0-34.0); MCHC 33.5 % (28.0-37.0); MCV 103.7 fL (80.0-100.0); MONOCYTES 11.5 % (1.0-8.0); PLATELET COUNT 192 thou/uL (150-400); POLYS 70.4 % (36.0-66.0); RBC 2.19 mil/uL (4.50-6.00); RDW 17.9 % (10.5-14.5); WBC 5.8 thou/uL (4.0-11.0)
[2016-08-01 04:49] LABS: MANUAL DIFF NO
[2016-08-01 05:23] LABS: ALBUMIN 2.5 g/dL (3.4-5.0); CALCIUM 8.5 mg/dL (8.5-10.1); CREATININE 2.2 mg/dL (0.6-1.3); PHOSPHORUS 3.6 mg/dL (2.5-4.9); POTASSIUM 3.8 mmol/L (3.5-5.1)
[2016-08-01 16:00] VITALS: BP 90/60
[2016-08-01 21:30] VITALS: BP 97/64
[2016-08-02 02:54] VITALS: BP 111/71
[2016-08-02 05:53] LABS: HEMOGLOBIN 7.4 gm/dL (14.0-18.0); MCH 34.6 pg (26.0-34.0); WBC 5.9 thou/uL (4.0-11.0)
[2016-08-02 05:55] LABS: HEMATOCRIT 22.6 % (42.0-52.0); MCHC 32.7 % (28.0-37.0); MCV 105.8 fL (80.0-100.0); RBC 2.14 mil/uL (4.50-6.00); RDW 17.9 % (10.5-14.5)
[2016-08-02 06:00] LABS: CALCIUM 8.4 mg/dL (8.5-10.1); CREATININE 2.1 mg/dL (0.6-1.3)
[2016-08-02 16:45] VITALS: BP 101/58
[2016-08-03 06:34] VITALS: BP 92/60
[2016-08-03 06:50] LABS: ALBUMIN 2.6 g/dL (3.4-5.0); CREATININE 2.1 mg/dL (0.6-1.3); PHOSPHORUS 3.2 mg/dL (2.5-4.9); POTASSIUM 4.2 mmol/L (3.5-5.1)
[2016-08-03 15:51] VITALS: BP 105/58
[2016-08-03 20:30] VITALS: BP 97/58
[2016-08-04 05:31] VITALS: BP 107/65
[2016-08-04 08:00] VITALS: BP 89/60; BP 95/59
[2016-08-04 16:00] VITALS: BP 104/49
[2016-08-05 05:45] VITALS: BP 105/62
[2016-08-05 15:45] VITALS: BP 94/58
[2016-08-06 05:42] VITALS: BP 98/58
[2016-08-06 08:00] VITALS: BP 108/42
[2016-08-06 16:00] VITALS: BP 90/50
[2016-08-06 20:45] VITALS: BP 94/55
[2016-08-07 05:35] VITALS: BP 107/60
[2016-08-07] MEDS ORDERED: COREG3.125 MG PO (12:23)
[2016-08-07 13:22] LABS: CALCIUM 8.8 mg/dL (8.5-10.1); CREATININE 1.5 mg/dL (0.6-1.3); POTASSIUM 3.8 mmol/L (3.5-5.1)
[2016-08-07 16:00] VITALS: BP 94/54
[2016-08-08 05:55] VITALS: BP 106/51
[2016-08-08 09:56] VITALS: BP 112/68
[2016-08-08] MEDS ORDERED: PACERONE 200 M200 M1 PO (10:53)
[2016-08-20] MEDS ORDERED: PACERONE 200 M200 M1 PO (11:22)
[2016-09-09] MEDS ORDERED: ALLOPURINOL 30300 M2 PO (17:23)
== END 2016-08-08 13:15 | disposition home health service (06) | DRG 948 ==
PROVIDERS: Family Medicine; Hospitalist; Nurse Practitioner Family
PROC: 5A09357 Assistance with Respiratory Ventilation, Less than 24 Consecutive Hours, Continuous Positive Airway Pressure (ICD-10-PCS; principal; 2016-08-01)
DX: R53.81 Other malaise (principal); I42.9 Cardiomyopathy, unspecified; N17.9 Acute kidney failure, unspecified; N18.4 Chronic kidney disease, stage 4 (severe); E87.2 Acidosis; G31.84 Mild cognitive impairment of uncertain or unknown etiology; F32.9 Major depressive disorder, single episode, unspecified; G89.29 Other chronic pain; M54.5 Low back pain; I48.2 Chronic atrial fibrillation; G47.33 Obstructive sleep apnea (adult) (pediatric); M21.372 Foot drop, left foot; I95.9 Hypotension, unspecified; D64.9 Anemia, unspecified; I35.0 Nonrheumatic aortic (valve) stenosis; Z96.653 Presence of artificial knee joint, bilateral; N40.0 Benign prostatic hyperplasia without lower urinary tract symptoms; I12.9 Hypertensive chronic kidney disease with stage 1 through stage 4 chronic kidney disease, or unspecified chronic kidney disease; R04.0 Epistaxis; E27.9 Disorder of adrenal gland, unspecified; Z98.42 Cataract extraction status, left eye; Z88.8 Allergy status to other drugs, medicaments and biological substances; Z80.9 Family history of malignant neoplasm, unspecified; Z82.49 Family history of ischemic heart disease and other diseases of the circulatory system; Z95.810 Presence of automatic (implantable) cardiac defibrillator; Z87.891 Personal history of nicotine dependence; Z90.49 Acquired absence of other specified parts of digestive tract; Z98.41 Cataract extraction status, right eye
CPT/HCPCS: 10112

== ENCOUNTER → 2016-10-18 | Outpatient (CLI) | payer OTHER ==
[~2016-10-18] VITALS: Ht 170.2 cm; Wt 121.1 kg
[~2016-10-18] MED LIST changes: +CARVEDILOL6.25 MG PO; +COREG3.125 MG PO; +NASAL DECONGEST30 ML NASAL; +NYSTATIN-TRIAMC15 GM TOP; +PACERONE 200 M200 M1 PO
--- NOTE | ~2016-10-18 | HPC ---
[facility] [place] [address] PAIN MANAGEMENT CONSULTATION Name: EMMETT BASS Room #: REG [facility]#: [id number] Admission: 10/18/16 Attend Phys: Khalida Rodriguez MD Discharge: Date of : 35 Report #: [id number] THIS REPORT FOR: //name// CC: Charlie Rodriguez DATE OF SERVICE: 10/18/2016 FOLLOWUP COMPLAINT: Pain improved a lot after the last epidural injection, not having pain down my leg, but I am still having pain in the lower portion of my back. FOLLOWUP HISTORY: The patient is an 81-year-old gentleman who has been seen in the pain clinic in the past because of lumbar radiculopathy. He has undergone epidural steroid injections. He noted that his pain improved after the last injection. He is having less pain and discomfort radiating down into his leg. He is having some pain across the lower portion of his back. He rates it as a 6/10. He notes that the pain limits his ability to get in and out of bed. To engage in activities of daily living, impedes his ability to stand and walk. He does have some weakness in his left foot. He has a brace on his leg. He is suffering from what appears to be foot drop on the left side. He notes some weakness in this foot and has some difficulty with dorsiflexion of his foot. He was seen in the Emergency Room a few days ago. He was suffering from a nosebleed. He has seen Dr. Peters who cauterized this for him. He has been taken off of Xarelto. He has had some nosebleeds in the past. PHYSICAL EXAMINATION: Blood pressure is 113/60, pulse 80, respiratory rate 22. Room air saturation is 97%. The patient has pain and discomfort in the lower portion of his back with pain radiating across the areas in the area of the posterior superior iliac spine area. He continues to walk with use of a cane. He walks with a somewhat antalgic gait. IMPRESSION: 1. Low back pain. 2. History of lumbar radiculopathy, improved after the last epidural steroid injection. 3. Bilateral knee replacements 2004. 4. Bilateral shoulder repairs. 5. Nonischemic cardiomyopathy, with ejection fraction of 25-30%. The patient recently stopped Xarelto secondary to nosebleed. 6. Hypertension. 7. Sleep apnea. 8. ICD placement 06/26/2016. 9. Bone spur, right heel -- cut Achilles tendon [place] [address] PAIN MANAGEMENT CONSULTATION Name: EMMETT BASS Room #: REG [facility] Lanre#: [id number] Admission: 10/18/16 Attend Phys: Khalida Rodriguez MD Discharge: Date of : 35 Report #: [id number] MEDICATIONS: Coreg 3.125 mg twice daily, Demadex 20 mg daily, multivitamin, Zyrtec, allopurinol, Pacerone. ALLERGIES: Tizanidine, confusion. RECOMMENDATIONS: We discussed the risks and benefits of a trigger point injection to the left and right low back area. Possible complications were discussed. The patient elects to proceed. PROCEDURE NOTE: The patient was placed in the sitting position. The right posterior superior iliac spine was palpated. The area of the gluteus moris was palpated and the patient noted a recurrence of pain similar to that he had been experiencing in this area. The right contralateral side was treated in a similar fashion. Trigger point was noted. The patient elects to proceed. PROCEDURE NOTE: The patient was placed in the sitting position. His back was sterilely prepped with a chlorhexidine solution and allowed to dry. A 25-gauge needle was then advanced in the left posterior superior iliac spine area near the gluteus moris. The patient states that this did reproduce a component of his pain. A total of 10 mL of 0.5% bupivacaine and 40 mg Decadron, 20 mg triamcinolone was injected into this area. The contralateral side was treated in a like fashion. A total of 40 mg Depo-Medrol and 20 mg triamcinolone was injected into this area. A total of 10 mL of 0.5% bupivacaine was used. The patient tolerated the procedure well. There were no complications. He will follow up in the future as needed. We would like to thank you for letting us participate in his care. We hope he continues to improve. By: [id number] Khalida Rodriguez MD /radha
[2016-10-18 10:52] VITALS: BP 113/60
== END ==
LOC: PAIN 07:02
DX: M54.16 Radiculopathy, lumbar region (principal); I42.8 Other cardiomyopathies; I10 Essential (primary) hypertension; Z95.810 Presence of automatic (implantable) cardiac defibrillator; Z96.653 Presence of artificial knee joint, bilateral; Z87.891 Personal history of nicotine dependence

== ENCOUNTER → 2016-11-13 | Outpatient (CLI) | payer OTHER ==
[~2016-11-13] VITALS: Ht 170.2 cm; Wt 119.2 kg
--- NOTE | ~2016-11-13 | HPC ---
[facility] [place] [address] [address] PAIN MANAGEMENT CONSULTATION Name: EMMETT BASS Room #: REG [facility]#: [id number] Admission: 11/13/16 Attend Phys: Khalida Rodriguez MD Discharge: Date of : 35 Report #: [id number] THIS REPORT FOR: //name// CC: JONATHAN Rodriguez DATE OF SERVICE: 11/13/2016 FOLLOWUP COMPLAINT: "The pain improved after the injections, but I am having some pain in a difference area, little lower down today." FOLLOWUP HISTORY: The patient is an 81-year-old gentleman who has been seen in the pain clinic because of low back pain. He continues to have some pain and discomfort in the lower portion of his back. He notes that walking, standing and activities of daily living are difficult because of this. As you recall, he has a problem with his left leg. He appears to have foot drop. He states that he has not fallen since we saw him last. He rates his pain as an 8-9 in the low back area. He can put his finger on areas in the left posterior buttocks area. PHYSICAL EXAMINATION: Blood pressure is 109/72, pulse 80, respiratory rate 20, room air saturation 99%. Height 5 feet 7. The patient walks with an ortho support to help with foot drop. He rates his pain as an 8-9 with areas in the buttocks area when he moves in certain position such as flexion, extension, left and right lateral bending. He finds it hard getting out of bed. IMPRESSION: 1. History of spinal stenosis with low back pain, moderate stenosis at L1-L2, L4-L5 and severe at L3-L4. 2. Myofascial pain, reproduced with palpation in the left and right posterior superior iliac spine areas. 3. arrhythmia, treated with Pacerone. RECOMMENDATIONS: We discussed treatment options with the patient and his . The patient moves from the chair to the examination table slowly with an antalgic gait. Pressure in the left posterior superior iliac spine area reproduces pain and discomfort, which the patient notes is located in a trigger point at this area. The right side is sore and has a trigger point in a contralateral area of the right posterior superior iliac spine area. Palpation in both of these areas reproduces the patient's discomfort. RECOMMENDATIONS: We discussed the treatment options with the patient and his . Risks and benefits of trigger point injections were discussed. Possible complications were reviewed. PROCEDURE NOTE: The patient was placed [place] [address] PAIN MANAGEMENT CONSULTATION Name: EMMETT BASS Room #: REG [facility] Lanre#: [id number] Admission: 11/13/16 Attend Phys: Khalida Rodriguez MD Discharge: Date of : 35 Report #: [id number] posterior superior iliac spine area was palpated. In the area of the gluteus moris, a trigger point was noted. A 25-gauge needle was then advanced into this area. The patient states that this reproduced his discomfort. Total of 40 mg Depo-Medrol, 20 mg triamcinolone was injected. 0.5% bupivacaine was then infiltrated. The contralateral side, which had been treated with a chlorhexidine solution was palpated. A trigger point was noted in the right posterior superior iliac spine area in the area of the gluteus moris. A 25-gauge needle was then advanced into the area and reproduced discomfort. A 40 mg of Depo-Medrol and 20 mg triamcinolone was injected. The patient tolerated the procedure well. There were no complications. He will follow up in the future as needed. We would like to thank you for letting us participate in his care. We hope he continues to improve. By: [id number] Khalida Rodriguez MD /radha
[2016-11-13 09:54] VITALS: BP 109/72
== END ==
LOC: PAIN 07:36
DX: M48.06 Spinal stenosis, lumbar region (principal); M79.1 Myalgia; I49.9 Cardiac arrhythmia, unspecified

== ENCOUNTER 2017-03-19 15:22 | Emergency (ER) | payer OTHER ==
[~2017-03-19] VITALS: Ht 172.7 cm; Wt 122.9 kg
--- NOTE | ~2017-03-19 | EKG ---
[address] [address] ELECTROCARDIOGRAM REPORT Name: SHELIAEMMETT Albert [id number] Admission: 03/19/17 Attend Phys: Discharge: 03/19/17 Date of : 35 Report #: [id number] THIS REPORT FOR: //name// [facility] ED Test Date: 2017-03-19 Test Time: 16:07:10 Pat Name: EMMETT BASS Department: Room: Gender: M Residence Supervisor: OMMO : 1935 Requested By: Jaylen Rebolledo Order Number: [id number] MD: Adriano Heaton Measurements Intervals [place] Rate: 67 P: WI: QRS: -57 QRSD: 174 T: 96 QT: 498 QTc: 526 Interpretive Statements Atrial fibrillation IVCD Compared to ECG 07/27/2016 07:25:26 Ventricular premature complex(es) no longer present Electronically Signed On 03-20-2017 7:57:52 CDT by Adriano Heaton [email or web address] <ELECTRONICALLY SIGNED> By: Adriano Heaton MD, [facility] 03/20/17 0757 06 06 Adriano Heaton MD, [facility] /EPI
[2017-03-19 15:54] LABS: ABSOLUTE NEUTROPHILS 6.3 thou/uL (1.4-8.2); BASOPHILS 0.4 % (0.0-2.0); EOSINOPHILS 3.2 % (0.0-3.0); HEMATOCRIT 42.4 % (42.0-52.0); HEMOGLOBIN 14.3 gm/dL (14.0-18.0); LYMPHOCYTES 12.2 % (24.0-44.0); MANUAL DIFF NO; MCH 32.9 pg (26.0-34.0); MCHC 33.6 g/dL (28.0-37.0); MCV 97.8 fL (80.0-100.0); MONOCYTES 8.8 % (1.0-8.0); PLATELET COUNT 172 thou/uL (150-400); POLYS 75.4 % (36.0-66.0); RBC 4.33 mil/uL (4.50-6.00); RDW 17.3 % (10.5-14.5); WBC 8.3 thou/uL (4.0-11.0)
[2017-03-19 16:08] LABS: CALCIUM 9.5 mg/dL (8.5-10.1); CREATININE 1.6 mg/dL (0.7-1.3)
[2017-03-19 16:15] LABS: TOTAL BILIRUBIN 1.3 mg/dL (<0.1-1.0); TOTAL PROTEIN 7.6 g/dL (6.4-8.2)
[2017-03-19 16:42] LABS: URINE BILIRUBIN NEGATIVE (Negative); URINE BLOOD NEGATIVE (Negative); URINE COLOR YELLOW; URINE GLUCOSE-RANDOM* NEGATIVE (Negative); URINE KETONES NEGATIVE (Negative); URINE LEUKOCYTES-REFLEX NEGATIVE (Negative); URINE PROTEIN (DIPSTICK) NEGATIVE (Negative); URINE UROBILINOGEN 0.2 E.U./dl (0.2-1.0)
[2017-03-19] MEDS ORDERED: FLAGYL500 MG PO (18:24)
[2017-03-19] MEDS ORDERED: CIPROFLOXACIN500 M1 PO (18:24)
[2017-03-19] MEDS ORDERED: HYDROCODONE-AP1 EAC6 PO (18:35)
== END 2017-03-19 19:29 | disposition home or self-care (01) ==
LOC: ER 15:22
PROVIDERS: Emergency Medicine
DX: K57.92 Diverticulitis of intestine, part unspecified, without perforation or abscess without bleeding (principal); I10 Essential (primary) hypertension; G47.30 Sleep apnea, unspecified; G89.29 Other chronic pain; M54.9 Dorsalgia, unspecified; Z96.653 Presence of artificial knee joint, bilateral; Z90.89 Acquired absence of other organs; Z88.5 Allergy status to narcotic agent; Z88.8 Allergy status to other drugs, medicaments and biological substances; Z87.891 Personal history of nicotine dependence

== ENCOUNTER 2017-06-09 14:39 | Inpatient (IN) | payer OTHER ==
[~2017-06-09] VITALS: Ht 172.7 cm; Wt 125.2 kg
--- NOTE | ~2017-06-09 | HC ---
[facility] [place] [address] CONSULTATION Name: EMMETT BASS Room #: 420-P ADM IN M.R.#: [id number] Admission: 06/09/17 Attend Phys: Marcin Wilks MD Discharge: Date of : 35 Report #: [id number] THIS REPORT FOR: //name// CC: Marcin Sanders HISTORY OF PRESENT ILLNESS: The patient is an 81-year-old male. He is a well known to me, asked to see for exacerbation of heart failure, acute on chronic. He has been complicated history with a question of diverticulitis in the ER last week and then subsequently diagnosed with C. diff on Flagyl and vancomycin orally. This was started 4 days ago. 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 He has been out of the hospital, prolonged hospitalization since last July. He has had 1 week history of progressive shortness of breath and dyspnea, felt like a CPAP was not working. This was checked and it was in fact working, but no chest pain associated with this. He has been compliant with his home medications, which were amiodarone 200, carvedilol 6.25 b.i.d., levothyroxine, furosemide 20, allopurinol, cetirizine, vitamins. PAST MEDICAL HISTORY: Positive for nonischemic cardiomyopathy, EF has varied anywhere from 15%-30% range, COPD, sleep apnea, BiPAP, obesity, chronic pain, recurrent C. diff colitis, acute on chronic renal issues and renal insufficiency, DJD, permanent atrial fibrillation. ALLERGIES: TIZANIDINE AND OXYCODONE. SOCIAL HISTORY: He is . He is retired. They are living independently. No current alcohol or tobacco. LABORATORY WORK: Creatinine 1.8, potassium 4.1. LFTs were normal. BNP was 14,537. H and H are 13 and 32 with a white count of 10. REVIEW OF SYSTEMS: Essentially negative except for as stated above and some intermittent constipation; however, now it has been more recently diarrhea due to the diagnosis of the C. diff. FAMILY HISTORY: Negative for premature coronary artery disease. PHYSICAL EXAMINATION: GENERAL: He is minimal distress. He is on BiPAP. He is voicing no complaints of chest pain, pressure. VITAL SIGNS: Blood pressure 120/70, pulse 68. HEENT: Eyes reveal xanthelasmas. Pharynx is clear. NECK: Shows preserved upstrokes, question of some mild JVD, although difficult to evaluate. LUNGS: Have prolonged expiratory phase, decreased in the bases, poor excursion. CARDIOVASCULAR: S1, S2, distant heart tones. [facility] [address] [place] [address] CONSULTATION Name: EMMETT BASS Room #: 420-P ADM IN M.R.#: [id number] Admission: 06/09/17 Attend Phys: Marcin Wilks MD Discharge: Date of : 35 Report #: [id number] ABDOMEN: Obese, nontender. EXTREMITIES: Reveal 1+ edema. Distal pulses diminished. NEUROLOGIC: Nonfocal. SKIN: Warm and dry without xanthoma or ulcer. Some venous stasis changes. NEUROLOGIC: Intact. MUSCULOSKELETAL: Generalized arthritic changes. IMAGING: Chest x-ray, cardiomegaly, vascular congestion. RECOMMENDATIONS AND PLAN: IV Lasix 40 b.i.d. He has permanent AFib. The rate is controlled. I would continue with the Coreg and the amiodarone. He is not able to ____ once daily Lovenox, although he is not able to be anticoagulated due to recurrent epistaxis and we have tried multiple times, so he is not a long-term anticoagulation candidate. I will repeat his echo in the morning. Daily weights, fluid restriction and we will follow with you. This has been discussed with him and his . By: [id number] Bruce Segovia MD, FACC /nt
--- NOTE | ~2017-06-09 | HC ---
[facility] [place] [address] CONSULTATION Name: EMMETT BASS Room #: 420-P [facility] IN ..#: [id number] Admission: 06/09/17 Attend Phys: Marcin Wilks MD Discharge: 06/11/17 Date of : 35 Report #: [id number] THIS REPORT FOR: //name// CC: Marcin Sanders REASON FOR CONSULTATION: Elevated creatinine. REASON FOR PRESENTATION: Shortness of breath. HISTORY OF PRESENT ILLNESS: This is an 81-year-old who was in the ER about a week ago for abdominal pain and was diagnosed to have C. diff and was started on Flagyl and vancomycin. He is known to have nonischemic cardiomyopathy with an ejection fraction of around 30%. He presented complaining of progressive shortness of breath with lower extremity edema. There was no associated chest pain. He stated that he has been compliant with his salt and fluid restriction. He also stated that he has been taking his Lasix as scheduled. On presentation to the emergency room, he was found to have an elevated creatinine at 1.8 mandating a nephrology consultation. From the renal perspective, the patient is well known to have chronic kidney disease and in fact, he had been seen by Dr. Be, my partner in the practice about 8 months ago. His creatinine had been in the range of 1.5-1.6. It does look like that he has some issues with cardiorenal syndrome with his renal function fluctuating according to his heart status. He has acquired renal cysts on his CT scans with what seems to be atrophic renal parenchyma consistent chronic medical disease. He is also known to have a large left adrenal mass. PAST MEDICAL HISTORY: 1. Cardiomyopathy with ejection fractions of around 30%. 2. Chronic kidney disease with fluctuating creatinine. 3. Status post gallbladder surgery. 4. Bilateral shoulder repair. 5. Bilateral knee replacement. 6. Hypertension. 7. Obstructive sleep apnea. 8. Status post ICD. 9. Enlarged prostate. MEDICATIONS: 1. Carvedilol. 2. Vancomycin. 3. Amiodarone. 4. Furosemide. ALLERGIES: OXYCODONE and TIZANIDINE. SOCIAL HISTORY: He is an ex smoker. No drug or alcohol abuse. [place] [address] CONSULTATION Name: EMMETT BASS Room #: 420-P [facility] IN [facility].#: [id number] Admission: 06/09/17 Attend Phys: Marcin Wilks MD Discharge: 06/11/17 Date of : 35 Report #: [id number] . REVIEW OF SYSTEMS: GENERAL: No fever or chills, but significant for weakness. CARDIOVASCULAR: Significant for shortness of breath and orthopnea. PULMONARY: No cough or hemoptysis. GASTROINTESTINAL: No nausea or vomiting, significant diarrhea. GENITOURINARY: No frequency, no urgency. MUSCULOSKELETAL: Occasional back pain and knees pain. SKIN: No rash or ulcerations. FAMILY HISTORY: Significant for hypertension. PHYSICAL EXAMINATION: GENERAL: Alert, oriented, somewhat weak. VITAL SIGNS: Blood pressure 119/79, temperature 36.7, pulse rate 69. HEAD AND NECK: Positive for jugular venous distention. No bruit, no thyromegaly. CHEST: Decreased air entry with crackles. CARDIOVASCULAR: Regular, with no rub. ABDOMEN: Soft, nontender. LOWER EXTREMITIES: +2 edema. NEUROLOGICAL: Alert, oriented with no deficits. SKIN: No rash or ulcerations. LABORATORY DATA: Reviewed. Creatinine is stable at 2.0. Sodium 145, potassium 3.9, chloride 108, carbon dioxide 25. White blood cell count 10.6, hemoglobin 13.2. IMAGING: Chest x-ray reviewed, consistent with cardiomegaly and fluid overload. ASSESSMENT, IMPRESSION AND PLAN: 1. Chronic kidney disease. 2. Acute kidney injury due to cardiorenal syndrome. 3. Cardiomyopathy with an ejection fractions of around 30%. 4. Pulmonary edema. 5. Known adrenal mass. 6. Known renal cysts. 7. From the renal perspective, we will try to optimize his heart status to further improve his kidney function. This is a cardiorenal syndrome picture and we will have some fluctuation in his creatinine based on his heart status. 8. I will increase the dose of his diuretics to 3 times a day. 9. Avoid nephrotoxins. 10. Fluid restrictions. 11. Water restrictions. [address] [address] CONSULTATION Name: EMMETT BASS Room #: 420-P [facility] IN .R.#: [id number] Admission: 06/09/17 Attend Phys: Marcin Wilks MD Discharge: 06/11/17 Date of : 35 Report #: [id number] 12. Daily body weight. 13. Defer the management of his heart issues to the cardiac team. <ELECTRONICALLY SIGNED> By: Ashwin Block MD 06/16/1709 0809 0843 Ashwin Block MD /nt
--- NOTE | ~2017-06-09 | EKG ---
[address] [address] ELECTROCARDIOGRAM REPORT Name: EMMETT BASS Room #: 420-P ADM IN M.R.#: [id number] Admission: 06/09/17 Attend Phys: Marcin Wilks MD Discharge: Date of : 35 Report #: [id number] THIS REPORT FOR: //name// [facility] ED Test Date: 2017-06-09 Test Time: 15:33:58 Pat Name: EMMETT BASS Department: Room: [facility] Gender: M Section Crews Activities Clerk: MZOOK : 1935 Requested By: Terell Rodriguez Order Number: [id number] MD: Ilan Richardson Measurements Intervals [place] Rate: 70 P: OR: QRS: -52 QRSD: 162 T: 118 QT: 502 QTc: 542 Interpretive Statements Atrial fibrillation Ventricular premature complex Nonspecific IVCD with LAD Inferior infarct, old Compared to ECG 03/19/2017 16:07:10 Ventricular premature complex(es) now present Myocardial infarct finding now present Electronically Signed On 06-09-2017 21:36:14 MUSHROOM PACKER by Ilan Richardson [email or web address] <ELECTRONICALLY SIGNED> By: Ilan Richardson MD 06/09/17 2136 1533 1533 Ilan Richardson MD /EPI
--- NOTE | ~2017-06-09 | 2DMMODE ---
[facility] [address] [place] [address] 2 D/M-MODE ECHOCARDIOGRAM Name: EMMETT BASS Room #: 420-P [facility] IN ..#: [id number] Admission: 06/09/17 Attend Phys: Marcin Wilks MD Discharge: Date of : 35 Date of Service: 06/10/17 0828 Report #: [id number] THIS REPORT FOR: //name// APPROVED REPORT Study performed: 06/10/2017 08:07:12 EXAM: Comprehensive 2D, Doppler, and color-flow Echocardiogram Patient Location: Bedside Room #: 420 Status: routine BSA: 2.34 HR: 75 bpm BP: 124/79 mmHg Rhythm: Atrial Fibrillation Other Information Study Quality: Adequate Indications Congestive Heart Failure Dyspnea Hx: ICD, NISCM, CHF, Afib, COPD, Obesity, HTN 2D Dimensions RVDd: 50.58 mm LVEF(%): 8.90 (>50%) IVSd: 12.21 (7-11mm) LVOT Diam: 25.23 (18-24mm) LVDd: 67.89 mm PWd: 12.62 (7-11mm) Ascending Ao: 47.46 (22-36mm) LVDs: 65.15 (25-40mm) Aortic Root: 41.25 mm Meadows's LVEF: 8.90 % Volumes Left Atrial Volume (Systole) Single Plane 4CH: 130.31 mL Single Plane 2CH: 193.15 mL LA ESV Index: 72.00 mL/m2 Aortic Valve AoV Peak Toni.: 1.92 m/s AO Peak Gr.: 15.18 mmHg LVOT Max P.32 mmHg AO Mean Gr.: 8.64 mmHg AO V2 Mean: 1.38 m/s LVOT Max V: 0.75 m/s AO V2 VTI: 31.50 cm NACHO Vmax: 1.96 cm2 [facility] [place] [address] 2 D/M-MODE ECHOCARDIOGRAM Name: EMMETT BASS Room #: 420-P [facility] IN ..#: [id number] Admission: 06/09/17 Attend Phys: Marcin Wilks MD Discharge: Date of : 35 Date of Service: 06/10/17 0828 Report #: [id number] Mitral Valve MV Decel. Time: 118.10 ms MV E Max Toni.: 0.94 m/s Pulmonary Valve PV Peak Toni.: 0.63 m/s PV Peak Gr.: 1.61 mmHg Tricuspid Valve TR Peak Toni.: 2.54 m/s RAP Estimate: 15.00 mmHg TR Peak Gr.: 26.33 mmHg PA Pressure: 41.00 mmHg Left Ventricle Left ventricle is dilated. Mild concentric left ventricular hypertrophy. Left ventricular systolic function is severely decreased. LVEF is 20%. This study is not technically sufficient to allow evaluation of the LV diastolic function due to atrial fibrillation. Right Ventricle Right ventricle is dilated. Right ventricular systolic function is mild to moderately reduced. Device lead is present in the right ventricle. Atria Left atrium is severely dilated. Right atrium is severely dilated. Aortic Valve Aortic valve is moderately calcified. Mild aortic regurgitation. Mild aortic stenosis. Calculated NACHO is 1.9cm2. Mitral Valve The mitral valve is normal in structure. Severe mitral regurgitation. Tricuspid Valve The tricuspid valve is normal in structure. Severe tricuspid regurgitation. Estimated PAP is 40-45mmHg. Pulmonic Valve The pulmonary valve is normal in structure. Mild pulmonic regurgitation. [employer] [facility] [address] [place] [address] 2 D/M-MODE ECHOCARDIOGRAM Name: EMMETT BASS Room #: 420-P [facility] IN [facility].#: [id number] Admission: 06/09/17 Attend Phys: Marcin Wilks MD Discharge: Date of : 35 Date of Service: 06/10/17 0828 Report #: [id number] Aortic root is dilated at 4.1cm. Ascending aorta is dilated at 4.7cm. IVC is dilated and collapses <50% with inspiration. Pericardium There is no pericardial effusion. <Conclusion> Left ventricular systolic function is severely decreased. LVEF is 20%. Both atria are severely dilated. Aortic valve is moderately calcified. Mild aortic stenosis. Calculated NACHO is 1.9cm2. Mild aortic regurgitation. The mitral valve is normal in structure. Severe mitral regurgitation. Ascending aorta is dilated at 4.7cm. Pulmonary artery pressure of 40-45mmHg There is no pericardial effusion. <ELECTRONICALLY SIGNED> By: Adriano Heaton MD, [facility] 06/10/17827 7 7 Adriano Heaton MD, FACC /INF
[~2017-06-09 14:39] MED LIST changes: +CIPROFLOXACIN500 M1 PO; +FLAGYL500 MG PO; +HYDROCODONE-AP1 EAC6 PO
[2017-06-09 14:43] VITALS: BP 103/71
[2017-06-09] MEDS ORDERED: VANCOCIN 250 M250 M1 PO (15:11)
[2017-06-09] MEDS ORDERED: ALIGN4 MG PO (15:12)
[2017-06-09 15:22] LABS: HEMATOCRIT 42.3 % (42.0-52.0); HEMOGLOBIN 13.8 gm/dL (14.0-18.0); MANUAL DIFF YES; MCHC 32.8 g/dL (28.0-37.0); MCV 100.7 fL (80.0-100.0); PLATELET COUNT 199 thou/uL (150-400); RDW 19.3 % (10.5-14.5); WBC 10.4 thou/uL (4.0-11.0)
[2017-06-09 15:31] LABS: CALCIUM 9.2 mg/dL (8.5-10.1); CREATININE 1.8 mg/dL (0.7-1.3); POTASSIUM 4.1 mmol/L (3.5-5.1)
[2017-06-09 15:38] LABS: ALBUMIN 3.8 g/dL (3.4-5.0); TOTAL BILIRUBIN 1.5 mg/dL (<0.1-1.0); TOTAL PROTEIN 6.9 g/dL (6.4-8.2); TROPONIN-I 0.04 ng/mL (<0.06)
[2017-06-09 15:43] LABS: ABSOLUTE NEUTROPHILS 8.6 thou/uL (1.4-8.2); ANISOCYTOSIS 1+; POLYCHROMASIA SLIGHT; TOTAL CELL COUNT 100
[2017-06-09 15:44] LABS: MACROCYTES 1+
[2017-06-09 17:55] VITALS: BP 107/73
[2017-06-09 18:11] VITALS: BP 110/71
[2017-06-09 18:30] VITALS: BP 121/79
[2017-06-09] MEDS ORDERED: COREG6.25 MG PO (20:13)
[2017-06-09] MEDS ORDERED: TORSEMIDE20 MG PO (20:14)
[2017-06-09] MEDS ORDERED: ALLOPURINOL 10100 M1 PO (20:15)
[2017-06-09] MEDS ORDERED: PRESERVISION A1 EAC2 PO (20:16)
[2017-06-09] MEDS ORDERED: LEVOXYL125 MCG PO (20:17)
[2017-06-09] MEDS ORDERED: IRON325 PO (20:20)
[2017-06-09] MEDS ORDERED: VITAMIN C250 MG PO (20:21)
[2017-06-09] MEDS ORDERED: MEN'S 50 PLUS1 EACH PO (20:23)
[2017-06-09] MEDS ORDERED: ZYRTEC10 M4 PO (20:23)
[2017-06-09 21:00] VITALS: BP 116/72
[2017-06-10 05:00] VITALS: BP 124/79
[2017-06-10 06:02] LABS: HEMOGLOBIN 13.2 gm/dL (14.0-18.0); MCH 33.3 pg (26.0-34.0); MCHC 33.1 g/dL (28.0-37.0); MCV 100.6 fL (80.0-100.0); RBC 3.97 mil/uL (4.50-6.00); RDW 18.5 % (10.5-14.5); WBC 10.6 thou/uL (4.0-11.0)
[2017-06-10 06:03] LABS: CALCIUM 9.2 mg/dL (8.5-10.1); POTASSIUM 3.9 mmol/L (3.5-5.1)
[2017-06-10 07:45] LABS: ALBUMIN 3.7 g/dL (3.4-5.0); CALCIUM 8.9 mg/dL (8.5-10.1); TOTAL BILIRUBIN 1.6 mg/dL (<0.1-1.0); TOTAL PROTEIN 6.1 g/dL (6.4-8.2)
[2017-06-10 08:04] VITALS: BP 119/79
[2017-06-10 15:49] VITALS: BP 108/67
[2017-06-10 20:00] VITALS: BP 107/71
[2017-06-11 01:41] VITALS: BP 107/71
[2017-06-11 04:00] VITALS: BP 100/64
[2017-06-11 07:24] LABS: ALBUMIN 3.9 g/dL (3.4-5.0); CALCIUM 9.5 mg/dL (8.5-10.1); PHOSPHORUS 4.4 mg/dL (2.5-4.9); POTASSIUM 3.7 mmol/L (3.5-5.1)
[2017-06-11 08:15] VITALS: BP 116/77
[2017-06-11] MEDS ORDERED: DEMADEX20 MG PO (10:20)
[2017-06-11 11:33] VITALS: BP 100/64
== END 2017-06-11 12:50 | disposition home or self-care (01) | DRG 291 ==
LOC: ER 14:39 → 4E 16:12 → EROBS 16:12 → 4E 18:12
PROVIDERS: Hospitalist; Internal Medicine Cardiovascular Disease; Physician Assistant
PROC: B24BZZ4 Ultrasonography of Heart with Aorta, Transesophageal (ICD-10-PCS; principal; 2017-06-10)
DX: I13.0 Hypertensive heart and chronic kidney disease with heart failure and stage 1 through stage 4 chronic kidney disease, or unspecified chronic kidney disease (principal); I50.23 Acute on chronic systolic (congestive) heart failure; N17.9 Acute kidney failure, unspecified; J96.11 Chronic respiratory failure with hypoxia; Z68.41 Body mass index [BMI] 40.0-44.9, adult; A04.72 Enterocolitis due to Clostridium difficile, not specified as recurrent; I42.9 Cardiomyopathy, unspecified; I35.0 Nonrheumatic aortic (valve) stenosis; E78.00 Pure hypercholesterolemia, unspecified; N18.9 Chronic kidney disease, unspecified; I48.2 Chronic atrial fibrillation; N40.0 Benign prostatic hyperplasia without lower urinary tract symptoms; Z96.653 Presence of artificial knee joint, bilateral; E66.9 Obesity, unspecified; M19.90 Unspecified osteoarthritis, unspecified site; Z98.42 Cataract extraction status, left eye; Z98.41 Cataract extraction status, right eye; Z95.810 Presence of automatic (implantable) cardiac defibrillator; Z87.891 Personal history of nicotine dependence; Z90.49 Acquired absence of other specified parts of digestive tract; Z88.8 Allergy status to other drugs, medicaments and biological substances; Z82.49 Family history of ischemic heart disease and other diseases of the circulatory system; Z80.8 Family history of malignant neoplasm of other organs or systems
CPT/HCPCS: 10183

== ENCOUNTER → 2017-07-11 | Outpatient (CLI) | payer OTHER ==
[~2017-07-11] VITALS: Ht 172.7 cm; Wt 123.7 kg
[~2017-07-11] MED LIST changes: +ALIGN4 MG PO; +ALLOPURINOL 10100 M1 PO; +BYSTOLIC 5 MG5 M1 PO; +COREG6.25 MG PO; +IRON325 PO; +LEVOXYL125 MCG PO; +MAGOX 400400 MG PO; +MEN'S 50 PLUS1 EACH PO; +TORSEMIDE20 MG PO; +VANCOCIN 250 M250 M1 PO; +VITAMIN C250 MG PO; +XANAX 0.25 MG0.25 MG PO; +ZYRTEC10 M4 PO
--- NOTE | ~2017-07-11 | HPC ---
[facility] [address] [address] [place] [address] PAIN MANAGEMENT CONSULTATION Name: EMMETT BASS Room #: REG [facility] GriffinJohnny#: [id number] Admission: 07/11/17 Attend Phys: Khalida Rodriguez MD Discharge: Date of : 35 Report #: [id number] THIS REPORT FOR: //name// CC: Charlie Rodriguez DATE OF SERVICE: 07/11/2017 FOLLOWUP COMPLAINT: "Noticed that the pain has returned and I came in for another injection." FOLLOWUP HISTORY: The patient is an 82-year-old gentleman who has been seen in the Pain Clinic in the past because of myofascial pain. He has undergone injections with local anesthetic and steroid and gleaned benefits from this. He has been somewhat active with rotation noted some slight recurrence of pain and discomfort. He wanted to return and get another injection prior to exacerbation of his pain. He has had some problem with diverticulosis. He was given an antibiotic. His said that he was placed on an IV antibiotic protocol for a period of time, after followup it was noted that the patient still was having some problems with his bowel and felt to have a Clostridium difficile. He has been taking an antibiotic since that time. He has a few more days of this medication. He will follow up with his physician in the near future in regards to how things are progressing. PHYSICAL EXAMINATION: Blood pressure 109/69, pulse 68, respiratory rate 20, room air saturation 96%. Height 5 feet 8 inches, weight 273 pounds, BMI is 41. The patient has pain in the low back area in the posterior superior iliac spine area. Movement causes exacerbation of his pain. He rates it as 7-8. He found that his pain after the last injection enabled him to be more mobile for about 3 months. CURRENT MEDICATIONS: Bystolic 5 mg daily, 25 mg daily, Demadex 20 mg daily, Zyrtec 10 mg, multivitamin, vitamin C, iron, levothyroxine, allopurinol, and amiodarone. The patient has taken the antibiotic, vancomycin IV for a period of time and now is on an oral dosing of this medication per his 's report. IMPRESSION: 1. Spinal stenosis, low back pain. 2. Myofascial pain with pain in the posterior superior iliac spine areas improved with trigger point injection at the last visit. 3. History of arrhythmias treated with Pacerone. 4. GI problems after his diverticulosis. He was treated with an antibiotic. 5. Development of C. difficile after treatment and [place] [address] PAIN MANAGEMENT CONSULTATION Name: EMMETT BASS Room #: REG [facility] Lanre#: [id number] Admission: 07/11/17 Attend Phys: Khalida Rodriguez MD Discharge: Date of : 35 Report #: [id number] taking oral vancomycin for a period of time and followed by his primary physician. RECOMMENDATION: We will have the patient return to the Pain Clinic after he has been cleared by his doctor. At that time, we will consider treatment of the trigger points in the posterior superior iliac spine area to help him glean more benefit. We would like to thank you for letting us participate in his care. We hope he continues to improve. <ELECTRONICALLY SIGNED> By: Khalida Rodriguez MD 07/18/17 0806 1604 0058 Khalida Rodriguez MD /[facility]
[2017-07-11 10:17] VITALS: BP 109/69
== END ==
LOC: PAIN 07:40
DX: M48.061 Spinal stenosis, lumbar region without neurogenic claudication (principal); K57.90 Diverticulosis of intestine, part unspecified, without perforation or abscess without bleeding; M79.1 Myalgia; Z86.79 Personal history of other diseases of the circulatory system

== ENCOUNTER → 2017-09-05 | Outpatient (CLI) | payer OTHER ==
[~2017-09-05] VITALS: Ht 172.7 cm; Wt 109.8 kg
--- NOTE | ~2017-09-05 | HPC ---
[facility] [address] [address] PAIN MANAGEMENT CONSULTATION Name: EMMETT BASS [facility] [id number] Admission: 09/05/17 Attend Phys: Khalida Rodriguez MD Discharge: Date of : 35 Report #: [id number] THIS REPORT FOR: //name// CC: Charlie Rodriguez DATE OF SERVICE: 09/05/2017 FOLLOWUP COMPLAINT: Pain in the low back and pain down in the left and right side. Left side is worse than the right. FOLLOWUP HISTORY: The patient is a very pleasant 82-year-old gentleman, who has been followed in the Pain Clinic because of chronic pain involving his low back area. He has undergone pain injections for myofascial pain in the past. He has gleaned significant benefits from these. He has noticed over the last few weeks worsening of pain and discomfort involving the low back area. Injections in these areas in the past were beneficial. He rates his pain as 7/10. Notes that the pain is exacerbated by walking, standing, lifting and activities of daily living. He has used heat as well as cold on this area with some benefit. Denies any bowel or bladder discomfort. Denies any new trauma to this area. ALLERGIES: NO KNOWN DRUG ALLERGIES. REVIEW OF CURRENT MEDICATIONS: Indicate use of alprazolam 0.25 mg daily, Align 4 mg, Bystolic 5 mg, Aldactone 25 mg, Demadex 20 mg, total of 40 mg daily, Zyrtec 10 mg, multivitamin, ascorbic acid 250 mg, iron 325 mg, levothyroxine 0.125 mg, PreserVision capsules b.i.d., allopurinol 100 mg, total of 300 mg tablet daily, amiodarone 200 mg daily. PAIN CLINIC ASSESSMENT: 1. He has a history of osteoarthritis. No treatment for rheumatoid arthritis. 2. Height 5 feet 8 inches, weight 242 pounds, BMI is 36. 3. Vital signs: Blood pressure 95/59, pulse 56, respiratory rate 16, room air saturation is 96%. 4. Pain intensity 01/27. 5. Fall risk: The patient has not fallen in the last 3 months. He does have a fall risk and does use a cane. 6. The patient is not on a blood thinner. 7. History of hypertension: The patient is being treated for hypertension. 8. Opioid greater than 6 weeks: The patient is not on opioid medications on a regular basis. 9. Risk tool. 10. Functional assessment tool. 11. Recreational drug use: The patient denies use of recreational drugs. 12. Tobacco: The patient is a former tobacco user. [place] [address] PAIN MANAGEMENT CONSULTATION Name: EMMETT BASS Room #: REG [facility] Lanre#: [id number] Admission: 09/05/17 Attend Phys: Khalida Rodriguez MD Discharge: Date of : 35 Report #: [id number] juncture. 13. The patient denies use of alcohol. PHYSICAL EXAMINATION: GENERAL: The patient is a well-developed white male, somewhat obese. APPEARANCE: The patient appears stated age. Alert and oriented x 3. Affect is appropriate. HEENT: The patient is normocephalic and atraumatic without evidence of nasal complaints or hearing problems. NECK: Without adenopathy. LUNGS: Decreased breath sounds. HEART: Regular rate. ABDOMEN: Protuberant. MUSCULOSKELETAL: The patient's alignment appears reasonably normal without significant lordosis or scoliosis. The patient walks with a slow, somewhat antalgic gait. Back flexion, extension, left and right lateral rotation, left and right lateral bending all pretty limited. Palpation in the area of the right posterior superior iliac spine and left posterior superior iliac spine reproduce a component of the patient's pain and discomfort. This was the area that was injected in the past and has benefited from injections. Muscle strength in the lower extremities is judged to be about 4+ in the left and right leg out of 5. IMPRESSION: 1. History of spinal stenosis with low back pain. 2. Moderate stenosis at L1-L2, L4-L5, and severe at L3-L4. 3. Myofascial pain, reproduces with palpation in the left and right posterior superior iliac spine areas. 4. History of arrhythmia, treated with Pacerone. 5. Gout. 6. Chronic obstructive pulmonary disease. 7. Hypertension/hypotension. 8. Nonischemic cardiomyopathy with shortness of breath. 9. Weakness. RECOMMENDATIONS: We discussed treatment options with the patient and his . Risks and benefits of a trigger point injection to the trigger points in the lower portion of the back were discussed. The patient had received good benefit in the past. At this juncture, he would like to proceed with another injection. He continues to have some pain and discomfort with activities of daily living. He has pain and discomfort in the lower portion of his back, which when he pushes in the area of the posterior superior iliac spine reproduces pain and discomfort. He feels that these areas continue to cause some pain and limit his ability to engage in activities of daily living to the level he would like to. Risks and benefits of the procedures were explained, which could include infection, increased muscle soreness, worsening of pain, no improvement in pain [address] [address] PAIN MANAGEMENT CONSULTATION Name: EMMETT BASS Room #: REG [facility]#: [id number] Admission: 09/05/17 Attend Phys: Khalida Rodriguez MD Discharge: Date of : 35 Report #: [id number] and the patient elects to proceed. PROCEDURE NOTE: The patient was placed in the sitting position. His back was sterilely prepped with a Betadine solution, which was allowed to dry on the left and the right side. After appropriate palpation in the left trigger point area near the gluteus moris and latissimus dorsi near the PSIS, a trigger point was noted. A 25-gauge needle was then advanced into the area of the discomfort. A total of 80 mg Depo-Medrol, 10 mL of 0.5% bupivacaine was injected. The contralateral side was treated in a like fashion. The area of the gluteus moris and latissimus dorsi near the posterior superior iliac spine area was noted. A 25-gauge needle was then advanced into this area. Again, a total of 60 mg of triamcinolone was injected. We changed the other side to 60 mg, so 60 mg was on the left side and 60 mg of triamcinolone on the right side. The patient tolerated the procedure well. There were no complications. He will follow up in the future as needed. We would like to thank you for letting us participate in his care. We hope he continues to improve. <ELECTRONICALLY SIGNED> By: Khalida Rodriguez MD 10/01/17 1426 0936 0117 Khalida Rodriguez MD /nt
[2017-09-05 11:23] VITALS: BP 95/59
== END ==
LOC: PAIN 07:22
DX: M48.061 Spinal stenosis, lumbar region without neurogenic claudication (principal); M79.1 Myalgia; I49.8 Other specified cardiac arrhythmias; I10 Essential (primary) hypertension; I42.8 Other cardiomyopathies; Z88.8 Allergy status to other drugs, medicaments and biological substances

== ENCOUNTER → 2017-12-24 | Outpatient (CLI) | payer OTHER ==
[~2017-12-24] VITALS: Ht 172.7 cm; Wt 112.3 kg
[~2017-12-24] MED LIST changes: -MAGOX 400400 MG PO
--- NOTE | ~2017-12-24 | HPC ---
[facility] [place] [address] PAIN MANAGEMENT CONSULTATION Name: EMMETT BASS Room #: REG [facility] Griffin.#: [id number] Admission: 12/24/17 Attend Phys: Khalida Rodriguez MD Discharge: Date of : 35 Report #: [id number] THIS REPORT FOR: //name// CC: Charlie Rodriguez DATE OF SERVICE: 12/24/2017 FOLLOWUP COMPLAINT: Noticed some return of pain in the low back and left side. FOLLOWUP HISTORY: The patient is an 82-year-old gentleman who has been seen in the pain clinic in the past because of some myofascial problems. He underwent injection of trigger points in the lower portion of his back in 2017. He noticed that the pain improved significantly. He states that when he walked out, he felt as though the bark of a tree had fallen from his left hip. He noticed significant improvement after that. At this juncture, he is noting a return of similar symptoms involves his low back. Notes that it is quite problematic. His left hip is noticing some increasing discomfort as well. He rates his pain as an 8/10. Notes that walking, standing, and lifting can worsen his pain. Use of heat and cold are helpful and also use of medications. At this juncture, he feels that he would like to proceed with another treatment course. He has had some problem with left foot drop. Still has to lift his left foot high, otherwise he notes that he almost trips. He is unable to dorsiflex his foot on the left as well as he does on the right side. Denies any back surgery since we saw him last. ALLERGIES: OXYCODONE, TIZANIDINE. CURRENT MEDICATIONS: Include Bystolic 5 mg, spironolactone 25 mg, Demadex 20 mg total of 40 mg daily, Zyrtec 1 tab at bedtime, multivitamin, Mens formula, vitamin C 250 mg at bedtime, levothyroxine 0.125 mg, PreserVision AREDS 2 soft gels b.i.d., allopurinol 300 mg daily, and amiodarone 200 mg. PAIN CLINIC ASSESSMENT: 1. History of osteoarthritis. No treatment for rheumatoid arthritis. 2. Height 5 feet 8 inches, weight 242 pounds, BMI is 36.8. 3. Vital signs: Blood pressure 95/59, pulse 56, respiratory rate 16, room air saturation 96%. 4. Pain intensity 7/10. 5. Fall risk. The patient has not fallen in the last 3 months. He does use a cane to help ambulate. 6. Blood thinner. The patient is not on a blood thinning medication. 7. Hypertension. He is being treated for hypertension. 8. Opioid therapy greater than 6 weeks. The patient is not on any opioid contract or receiving opioids [place] [address] PAIN MANAGEMENT CONSULTATION Name: EMMETT BASS Room #: REG [facility] Lanre#: [id number] Admission: 12/24/17 Attend Phys: Khalida Rodriguez MD Discharge: Date of : 35 Report #: [id number] 9. Risk assessment tool. 10. Functional assessment tool. 11. Recreational drug use. 12. Tobacco: Former tobacco smoker. 13. Alcohol: The patient denies use of alcoholic beverages at this juncture. PHYSICAL EXAMINATION: GENERAL: The patient is a well-developed white male, appears his stated age. He is alert and oriented x 3. Speech is fluent. HEENT: Normocephalic, atraumatic. Extraocular eyes muscles intact. Hearing is within normal limits. Mucous membranes are moist. Sclerae is nonicteric. NECK: Without adenopathy. Slightly decreased range of motion of his neck and upper extremities. HEART: Regular rate. CHEST: Clear to auscultation, distant breath sounds without crackles, rales. ABDOMEN: Protuberant. MUSCULOSKELETAL: Without significant scoliosis, kyphosis or lordosis. Upper extremity muscle strength judged to be 5/5 for the major muscle groups without sensory changes. Lower extremity muscle weakness in the left leg. The patient has some difficulty totally dorsiflexing his left foot. He is able to move it about 2 inches, but not to the same level that he is able to move his right. Walks slow and with a somewhat antalgic gait. Forward bending, lumbar extension significantly limited secondary to increased pain in low back and the patient's balance. Left and right lateral rotation, left and right lateral bending all limited secondary to the patient's body habitus. Palpation in the area of the posterior superior iliac spine of the left as well as in the right reproduce a significant component of his pain and discomfort. Also, has some pain and discomfort on the lateral iliac ridge. IMPRESSION: 1. Myofascial pain, low back area, which improved after trigger point injections in the past. 2. History of spinal stenosis of the low back with moderate stenosis at L1-L2, L4-L5, and severe at L3-L4. 3. Arrhythmia treated with Pacerone. 4. Hypothyroidism. 5. Gout. RECOMMENDATIONS: We discussed treatment options with the patient and his . The patient had had pain and discomfort in the lower portion of his back. He underwent trigger point injections in 2017. Noted some improvement in his pain and discomfort. He has returned to the pain clinic because of recurrence of similar pain. At this juncture, we will proceed with a trigger point injection to the affected area. We discussed possible complication of the procedure, which could include infection, no improvement in pain, worsening of pain, reddening of the skin/increase appetite as a result of steroid use. The patient [address] [address] PAIN MANAGEMENT CONSULTATION Name: EMMETT BASS Room #: REG [facility]#: [id number] Admission: 12/24/17 Attend Phys: Khalida Rodriguez MD Discharge: Date of : 35 Report #: [id number] would like to proceed. PROCEDURE NOTE: The patient was placed in the sitting position. His back was sterilely prepped with a chlorhexidine solution, which was allowed to dry. An area in the left posterior superior iliac spine with the gluteus moris and latissimus dorsi was palpated. This reproduce a component of the patient's pain. A 25-gauge needle was then advanced into the area of discomfort. The patient states that this reproduced a component of his pain. A total of 80 mg Depo-Medrol, 9 mL of 0.5% bupivacaine was injected. The patient tolerated the procedure well. There were no complications. The contralateral right side was treated in a like fashion. A trigger point was noted in the area of the posterior superior iliac spine/gluteus moris/latissimus dorsi. The trigger point was noted. A 25-gauge needle was then advanced into this area. The patient states that this was on it. A total of 80 mg triamcinolone was injected, 9 mL of 0.5% bupivacaine. The patient tolerated the procedure well. There were no complications. A Band-Aid was placed over the sites. There was no bleeding. The patient had no numbness or tingling as a result of the injection. He remained in the pain clinic for an appropriate amount of time. He will follow up in the future as needed. We would like to thank you for letting us participate in his care. We hope he continues to improve. <ELECTRONICALLY SIGNED> By: Khalida Rodriguez MD 12/31/17 1332 1531 10 Khalida Rodriguez MD /[facility]
[2017-12-24 09:23] VITALS: BP 103/53
== END | disposition home or self-care (01) ==
LOC: PAIN 06:45
DX: M79.1 Myalgia (principal); M48.061 Spinal stenosis, lumbar region without neurogenic claudication; G89.29 Other chronic pain; E03.9 Hypothyroidism, unspecified; I50.9 Heart failure, unspecified; M10.9 Gout, unspecified; Z86.79 Personal history of other diseases of the circulatory system; Z88.8 Allergy status to other drugs, medicaments and biological substances; Z79.899 Other long term (current) drug therapy; Z87.891 Personal history of nicotine dependence; J44.1 Chronic obstructive pulmonary disease with (acute) exacerbation; Z87.19 Personal history of other diseases of the digestive system; I48.91 Unspecified atrial fibrillation; Z79.01 Long term (current) use of anticoagulants; Z98.890 Other specified postprocedural states

== ENCOUNTER → 2018-02-06 | Outpatient (CLI) | payer OTHER ==
[~2018-02-06] VITALS: Ht 172.7 cm; Wt 112.7 kg
[~2018-02-06] MED LIST changes: +MAGOX 400400 MG PO
--- NOTE | ~2018-02-06 | HPC ---
[facility] [place] [address] [address] PAIN MANAGEMENT CONSULTATION Name: EMMETT BASS Room #: REG [facility]ny#: [id number] Admission: 02/06/18 Attend Phys: Khalida Rodriguez MD Discharge: Date of : 35 Report #: [id number] THIS REPORT FOR: //name// CC: Charlie Rodriguez DATE OF SERVICE: 02/06/2018 FOLLOWUP COMPLAINT: "The pain improved after the last shot in the back, but I am still having some pain in my back and now some in the front of my right leg." FOLLOWUP HISTORY: The patient is an 82-year-old gentleman who has been followed in the pain clinic because of myofascial pain. He has undergone trigger point injections in the back area. He has noted improvement in those areas. At this juncture, he continues to have some pain and discomfort in the low back area, but states that it is more pain radiating around his right buttocks and into the anterior portion of his right leg. Notes some weakness when he is trying to lift his right leg. Denies having any surgery in the past. He has been told that he has spinal stenosis in his lower back. He walks with use of a cane. Also, has had a history of left leg weakness/foot drop. Still unable to dorsiflex his left foot. ALLERGIES: OXYCODONE, TIZANIDINE. MEDICATIONS: Bystolic 5 mg, spironolactone 25 mg, Demadex 20 mg total of 40 mg daily, Zyrtec one tablet at bedtime, multivitamin men's formula, vitamin C 250 mg at bedtime, levothyroxine 0.125 mg, PreserVision 2 capsules b.i.d., allopurinol 300 mg, amiodarone 200 mg. PAIN CLINIC ASSESSMENT: 1: History of osteoarthritis. The patient does have some spinal stenosis in the lower portion of his back. He is not being treated for rheumatoid arthritis. 2. Height 5 feet 8 inches, weight 248 pounds, BMI 37.8. 3. Vital signs: Blood pressure 101/65, pulse 75, respiratory rate 16, room air saturation 97%. 4. Pain intensity 6-01/27. 5. Fall risk. The patient has not fallen in the last 3 months. Does have some weakness in his left foot with foot drop. 6. Blood thinner. The patient is not on a blood thinning medication. 7. Hypertension. The patient has not been treated for hypertension. 8. Opioid therapy greater than 6 weeks. The patient is not on an opioid regimen. 9. Risk assessment tool, low for opioid use. 10. Functional assessment tool. 11. Recreational drug use. The patient denies use of recreational drugs. [address] [address] PAIN MANAGEMENT CONSULTATION Name: EMMETT BASS [facility] [id number] Admission: 02/06/18 Attend Phys: Khalida Rodriguez MD Discharge: Date of : 35 Report #: [id number] Tobacco: The patient denies use of tobacco. Alcohol: The patient denies frequent use of alcoholic beverages. PHYSICAL EXAMINATION: GENERAL: The patient is a well-developed white male, appears his stated age. He is alert and oriented x 3. Speech is fluent. HEENT: Normocephalic, atraumatic. Extraocular eye muscles intact. Hearing is within normal limits. Mucous membranes are moist. Sclerae are nonicteric. NECK: Without adenopathy. Slightly decreased range of motion. HEART: Regular rate. CHEST: Clear to auscultation. Distant breath sounds given the patient's body habitus. ABDOMEN: Protuberant. MUSCULOSKELETAL: Without significant scoliosis, kyphosis or lordosis. The patient has some pain and discomfort in the right low back area with pain radiating into the L3-L4 distribution of his anterior thigh. The patient has some weakness with foot drop on the left, has difficulty dorsiflexing his foot. Gait is slow and antalgic. The patient walks with use of a cane. Has a forward bending with ambulation. The patient has some soreness in the posterior superior iliac spine areas, but had a significant decrease since the past trigger point injections. IMPRESSION: 1. Lumbar radicular pain with pain radiating into the L3-L4 area of his right thigh, history of myofascial pains, which have improved with trigger point injections. 2. History of spinal stenosis of the low back with moderate stenosis at L1-L2, L4-L5, and L3-L4 which is severe. 3. Arrhythmias treated with Pacerone. 4. Hypothyroidism. 5. Gout. RECOMMENDATIONS: We discussed treatment options with the patient and his . At this juncture, given that he is having pain which is radiating in a three-four dermatomal distribution and he has spinal stenosis, we will proceed with an epidural steroid injection with hopes that this will help decrease the pain and discomfort, which he is experiencing. Risks and benefits of the procedure were discussed. Possible complications of the procedure, which could include but are not limited to infection, worsening of pain, no improvement in pain, muscle or paralysis. The patient elects to proceed. PROCEDURE NOTE: The patient was placed in the prone position. His back was sterilely prepped with a Betadine solution on 3 occasions. It was allowed to dry. Fluoroscopy using anterior, posterior as well as lateral viewing were instituted. His back was sterilely prepped with a Betadine solution. 0.25% bupivacaine was infiltrated at the L3-L4 interspace. In a midline approach, [facility] [address] [place] [address] PAIN MANAGEMENT CONSULTATION Name: EMMETT BASS Room #: REG [facility].#: [id number] Admission: 02/06/18 Attend Phys: Khalida Rodriguez MD Discharge: Date of : 35 Report #: [id number] 0.25% bupivacaine was infiltrated. A 17-gauge Tuohy with loss of resistance technique was used to gain access to the epidural space. There was no CSF, heme or paresthesia. Total of 80 mg Depo-Medrol, 40 mg triamcinolone and 2 mL of 0.25% bupivacaine was injected. The patient tolerated the procedure well. There were no complications. He remained in the pain clinic for an appropriate amount of time. A total of 12 seconds fluoroscopy time was used. The patient will call us if he has any concerns. We would like to thank you for letting us participate in his care. We hope he continues to improve. By: [id number] Khalida Rodriguez MD /nt
[2018-02-06 10:37] VITALS: BP 101/63
== END | disposition home or self-care (01) ==
LOC: PAIN 06:50
DX: M54.16 Radiculopathy, lumbar region (principal); G89.29 Other chronic pain; I11.0 Hypertensive heart disease with heart failure; I50.9 Heart failure, unspecified; I48.91 Unspecified atrial fibrillation; I49.9 Cardiac arrhythmia, unspecified; E03.9 Hypothyroidism, unspecified; M10.9 Gout, unspecified; Z98.890 Other specified postprocedural states; Z79.899 Other long term (current) drug therapy; Z88.8 Allergy status to other drugs, medicaments and biological substances; Z87.891 Personal history of nicotine dependence; Z87.19 Personal history of other diseases of the digestive system

== ENCOUNTER 2019-01-15 13:06 | Inpatient (IN) | payer OTHER ==
[~2019-01-15] VITALS: Ht 175.3 cm; Wt 121.0 kg
--- NOTE | ~2019-01-15 | HC ---
[facility] [place] [address] [place] [address] CONSULTATION Name: EMMETT BASS Room #: 360-P ADM IN M.R.#: [id number] Admission: 01/15/19 ������������������ Attend Phys: Guillermo Awan MD Discharge: ������������������ Date of : 35 Report #: [id number] THIS REPORT FOR: //name// CC: Charlie Awan CARDIOLOGY CONSULTATION HISTORY OF PRESENT ILLNESS: The patient is an 83-year-old male, well known to myself. History of a mildly severe cardiomyopathy, but he has been stable with an EF in the 20% to 25% range for some time now. Moderate aortic valve stenosis, 1.5 cm. I just saw him last month in the office and he had been doing relatively well. The , per notes, says progressive shortness of breath this week and having talking in his sleep, like his oxygenation may be low. This is a new finding for him and some questionable fever and has also developed a cough. BNP is elevated. Chest x-ray looks like a possible infiltrate. He is in no distress. He is hemodynamically stable. He has permanent underlying atrial fibrillation. He is not an anticoagulation candidate as we have had multiple attempts with multiple recurrent bleeds. This has been discussed over and over with the patient and primary and there will be no anticoagulation. He has been compliant with his medications. There may have been some mild dietary indiscretion. The EKG is atrial fibrillation with controlled ventricular response. He has underlying AICD and an incomplete bundle branch block. HOME MEDICATIONS: Allopurinol, vitamins, gabapentin, levothyroxine, Bystolic 5, Aldactone 25 and torsemide 40 every day. PAST MEDICAL HISTORY: Positive for the cardiomyopathy, ICD, permanent underlying atrial fibrillation, moderate aortic valve stenosis, history of nonsustained VT, sleep apnea, PVCs and mild coronary artery disease. He had nonobstructive coronary artery disease, so this is a predominantly an idiopathic cardiomyopathy. Prostate surgery, total knee and shoulder surgeries. Basal cell of the face and melanoma of the arms with prior surgery. SOCIAL HISTORY: He is . No current alcohol; quit tobacco in the 60s. Retired. They do live somewhat independently. FAMILY HISTORY: No significant premature coronary disease. ALLERGIES: LISINOPRIL. REVIEW OF SYSTEMS: Essentially negative, except for the intermittent fever and progressive dyspnea. PHYSICAL EXAMINATION: VITAL SIGNS: Pulse is 80s, blood pressure 136/80. HEENT: Eyes reveal no xanthelasmas. Pharynx is clear. [facility] [address] [place] [address] CONSULTATION Name: EMMETT BASS Room #: 360-P [facility].#: [id number] Admission: 01/15/19 ������������������ Attend Phys: Guillermo Awan MD Discharge: ������������������ Date of : 35 Report #: [id number] NECK: Shows preserved upstrokes, question of some mild JVD. LUNGS: Prolonged expiratory phase with diminished in the base. Few fine crackles. CARDIAC EXAMINATION: Distant heart tones irregularly irregular, S1, S2. ABDOMEN: Obese, nontender. EXTREMITIES: Reveal trace of edema to 1+. There are some venous stasis changes, but no skin breakdown. MUSCULOSKELETAL: Generalized arthritic changes. I did not ambulate him. NEUROLOGIC: Intact. SKIN: Warm and dry, without xanthoma. There are venous stasis changes. BNP in the morning. ASSESSMENT: 1. Possible pneumonia with infiltrate, hypoxemia. 2. Frqav-uj-fcxrxnj systolic heart failure, elevated BNP and some questionable cephalization on chest x-ray. 3. Permanent atrial fibrillation, not an anticoagulant candidate due to recurrent bleeds. 4. Degenerative joint disease. 5. Obesity. 6. Hypothyroidism. 7. History of ICD placement and nonsustained ventricular tachycardia. 8. Sleep apnea. RECOMMENDATIONS AND PLAN: Presumably antibiotics per primary service, IV Lasix. A.m. lab. No indication to repeat echo, recently done. There is moderate aortic valve stenosis of 1.5. Ejection fraction is 20% to 25%. These have been stable for the last few years. Daily weights, salt and fluid restriction and we will follow with you. Thank you for asking us to assist in the care of this patient. ��������������������������������������������� ���������������������������������������� By: ��������������������������������������������� 1652 1231 Bruce Segovia MD, FACC /nt
[2019-01-15 13:07] VITALS: BP 103/59
[2019-01-15 13:53] LABS: ABSOLUTE NEUTROPHILS 10.7 thou/uL (1.4-8.2); BASOPHILS 0.4 % (0.0-2.0); EOSINOPHILS 0.6 % (0.0-3.0); HEMATOCRIT 39.7 % (42.0-52.0); LYMPHOCYTES 6.1 % (24.0-44.0); MCH 32.7 pg (26.0-34.0); MCHC 32.7 g/dL (28.0-37.0); MONOCYTES 7.3 % (1.0-8.0); PLATELET COUNT 196 thou/uL (150-400); POLYS 85.6 % (36.0-66.0); RBC 3.97 mil/uL (4.50-6.00); RDW 18.5 % (10.5-14.5); WBC 12.5 thou/uL (4.0-11.0)
[2019-01-15 14:13] LABS: CALCIUM 9.3 mg/dL (8.5-10.1); POTASSIUM 4.5 mmol/L (3.5-5.1)
[2019-01-15 14:22] LABS: TROPONIN-I 0.06 ng/mL (<0.06)
[2019-01-15 16:39] VITALS: BP 121/58
[2019-01-15 17:51] LABS: URINE BILIRUBIN NEGATIVE (Negative); URINE BLOOD NEGATIVE (Negative); URINE CLARITY CLEAR; URINE COLOR YELLOW; URINE GLUCOSE-RANDOM* NEGATIVE (Negative); URINE KETONES NEGATIVE (Negative); URINE LEUKOCYTES-REFLEX TRACE (Negative); URINE NITRITE-REFLEX NEGATIVE (Negative); URINE PROTEIN (DIPSTICK) NEGATIVE (Negative); URINE UROBILINOGEN 0.2 E.U./dl (0.2-1.0)
[2019-01-15 17:59] VITALS: BP 108/60
--- NOTE | 2019-01-15 19:40 | NUR ---
PATIENT ADMIT TO UNIT AT 1830. A/O X4. ON ROOM AIR NO DISTRESS NOTED. WILL KEEP MONITOR.
[2019-01-15 20:09] VITALS: BP 95/58
[2019-01-15] MEDS ORDERED: DEMADEX20 MG PO (21:59)
[2019-01-16] VITALS: BP 11/80; BP 110/80
[2019-01-16 04:32] VITALS: BP 119/70
[2019-01-16 05:35] LABS: ABSOLUTE NEUTROPHILS 10.1 thou/uL (1.4-8.2); BASOPHILS 0.4 % (0.0-2.0); EOSINOPHILS 0.8 % (0.0-3.0); HEMATOCRIT 40.7 % (42.0-52.0); HEMOGLOBIN 13.3 gm/dL (14.0-18.0); LYMPHOCYTES 6.2 % (24.0-44.0); MCH 32.8 pg (26.0-34.0); MCHC 32.6 g/dL (28.0-37.0); MCV 100.6 fL (80.0-100.0); MONOCYTES 7.2 % (1.0-8.0); PLATELET COUNT 213 thou/uL (150-400); POLYS 85.4 % (36.0-66.0); RBC 4.05 mil/uL (4.50-6.00); RDW 18.8 % (10.5-14.5); WBC 11.8 thou/uL (4.0-11.0)
[2019-01-16 05:47] LABS: ALBUMIN 3.6 g/dL (3.4-5.0); ANION GAP 14 mmol/L (7-16); BUN 83 mg/dL (7-18); CALCIUM 9.1 mg/dL (8.5-10.1); CHLORIDE 99 mmol/L (98-107); CO2 23 mmol/L (21-32); CREATININE 2.3 mg/dL (0.7-1.3); GLUCOSE 167 mg/dL (74-106); MAGNESIUM 2.5 mg/dL (1.8-2.4); POTASSIUM 4.4 mmol/L (3.5-5.1); SGOT 65 U/L (15-37); SGPT 80 U/L (30-65); SODIUM 136 mmol/L (136-145); TOTAL BILIRUBIN 1.4 mg/dL (<0.1-1.0); TOTAL PROTEIN 7.6 g/dL (6.4-8.2); TROPONIN-I <0.06 ng/mL (<0.06)
--- NOTE | 2019-01-16 05:52 | NUR ---
PATIENT IS ALERT AND ORIENTED. PATIENT IS FLUID RESTRICTION AT HOME. PATIENT IS UP SBA WITH WALKER. PATIENT FELL AT HOME AND IS A HIGH FALL RISK BUT VERY STEADY ON FEET. PATIENT IS 3.5-4L ON CPAP HS. PATIENT IS ROOM AIR DURING THE DAY. PATIENT IS STARTING ANTIBIOTICS TODAY FOR POSSIBLE PNA. PATIENT IS A FIB WITH BBB ON TELE. PATIENT HAS A PACEMAKER. PATIENT IS OCCATIONALLY V PACED. PATIENT IS RESTING COFMORTABLY IN BED. PATIENT HAD PRUNE JUICE TO ENCOURAGE BM. PATIENT IS PROGRESSING TO GOALS. WCM.
[2019-01-16 07:48] VITALS: BP 102/55
[2019-01-16 11:24] VITALS: BP 91/61
[2019-01-16 16:20] VITALS: BP 92/61
--- NOTE | 2019-01-16 18:11 | NUR ---
ASSUMED PATIENT CARE AT 0700. A/O X4. PLEASANT. NO SOB NOTED. AMBULATED WITH WALKER. NO DISFRESS NOTED. SLOWLY TOWARDS POC GOALS.
[2019-01-16 19:30] VITALS: BP 101/60
--- NOTE | 2019-01-17 03:00 | NUR ---
PATIENT IS ALERT AND ORIENTED. PATIENT IS SBA WITH WALKER. PATIENT ROOM AIR. CPAP HS 3L BLEED. PATIENT IS A FIB. PATIENT HAS A PACEMAKER. PATIENTS LBM WAS THE 29TH. PATIENT HAS NOT DISPLAYED ANY SIGN OF CONFUSION HS. PATIENT IS PENDING POSSIBLE DC TODAY IF ANTIBIOTIC THERAPY IS COMPLETE. PATIENT IS RESTING COFMORTABLY IN BED. WCM. PATIENT IS PROGRESSING TO GOALS. PATIENT DENIES ANY PAIN.
[2019-01-17 04:15] VITALS: BP 97/59
[2019-01-17 05:50] LABS: MCHC 32.6 g/dL (28.0-37.0); MCV 101.3 fL (80.0-100.0); RBC 3.95 mil/uL (4.50-6.00); RDW 18.7 % (10.5-14.5)
[2019-01-17 06:00] LABS: CALCIUM 9.1 mg/dL (8.5-10.1); CREATININE 2.3 mg/dL (0.7-1.3); MAGNESIUM 2.6 mg/dL (1.8-2.4); POTASSIUM 4.9 mmol/L (3.5-5.1)
[2019-01-17 07:18] VITALS: BP 111/74
[2019-01-17 11:23] VITALS: BP 99/63
[2019-01-17 16:05] VITALS: BP 104/62
--- NOTE | 2019-01-17 18:43 | NUR ---
ASSUMED PATIENT CARE AT 0700. A/O X4. PLEASANT. NO DISDRESS NOTED. SLOWLY TOWARDS POC GOALS.
[2019-01-17 20:00] VITALS: BP 118/68
[2019-01-18 03:30] VITALS: BP 104/63
--- NOTE | 2019-01-18 03:59 | NUR ---
ASSUMED PT CARE AROUND 1900. A&OX4. PT SAT UP IN CHAIR EARLIER IN THE SHIFT. TOLERATED WELL. UP W/ ASSIST TO BTR. PT SLEPT MOST OF THE NIGHT WITH CPAP ON. RESP EVEN AND UNLABORED. O2 SATS STABLE. NO C/O PAIN. C/O NON-PRODUCTIVE COUGH AND SOME SOA W/ EXERTION. VSS. FALL PRECAUTIONS IN PLACE. PROGRESSING TOWARD POC GOALS. WILL CONTINUE TO MONITOR FURTHER.
[2019-01-18 04:34] LABS: ABSOLUTE NEUTROPHILS 8.7 thou/uL (1.4-8.2); BASOPHILS 0.3 % (0.0-2.0); EOSINOPHILS 1.8 % (0.0-3.0); HEMATOCRIT 38.5 % (42.0-52.0); HEMOGLOBIN 12.6 gm/dL (14.0-18.0); LYMPHOCYTES 8.1 % (24.0-44.0); MCHC 32.8 g/dL (28.0-37.0); MCV 100.8 fL (80.0-100.0); MONOCYTES 7.7 % (1.0-8.0); PLATELET COUNT 186 thou/uL (150-400); POLYS 82.1 % (36.0-66.0); RBC 3.82 mil/uL (4.50-6.00); RDW 18.4 % (10.5-14.5); WBC 10.6 thou/uL (4.0-11.0)
[2019-01-18 04:46] LABS: CALCIUM 8.8 mg/dL (8.5-10.1); CREATININE 2.1 mg/dL (0.7-1.3); POTASSIUM 4.4 mmol/L (3.5-5.1)
[2019-01-18 07:44] VITALS: BP 102/62
--- NOTE | 2019-01-18 07:51 | EKG ---
[address] [address] ELECTROCARDIOGRAM REPORT Name: EMMETT BASS Room #: 360-P ADM IN M.R.#: [id number] ������������������ Admission: 01/15/19 ������������������ Attend Phys: Guillermo Awan MD Discharge: ������������������ Date of : 35 Report #: [id number] ����������������������������������������������������������������� [id number] THIS REPORT FOR: //name// [facility] ED Test Date: 2019-01-15 Test Time: 13:58:59 Pat Name: EMMETT BASS Department: Room: [facility] Gender: M Vortex Operator: SOFIE : 1935 Requested By: Hillary Salinas Order Number: [id number] MD: Adriano Heaton Measurements Intervals [place] Rate: 76 P: [place]: QRS: -59 QRSD: 182 T: 112 QT: 483 QTc: 544 Interpretive Statements Atrial fibrillation with premature ventricular complexes Nonspecific intraventricular conduction delay Abnormal T, consider ischemia, lateral leads Compared to ECG 06/09/2017 15:33:58 No significant change was found Electronically Signed On 01-18-2019 7:51:11 CDT by Adriano Heaton [email or web address] ��������������������������������������������� <ELECTRONICALLY SIGNED> ���������������������������������������� By: Adriano Heaton MD, [facility] ��������������������������������������������� 01/18/19 0751 1358 1358 Adriano Heaton MD, [facility] /EPI
--- NOTE | 2019-01-18 07:59 | EKG ---
[place] [address] [facility] [place] [address] ELECTROCARDIOGRAM REPORT Name: SHELIA,EMMETT Albert Room #: 360-P ADM IN M.R.#: [id number] ������������������ Admission: 01/15/19 ������������������ Attend Phys: Guillermo Awan MD Discharge: ������������������ Date of : 35 Report #: [id number] ����������������������������������������������������������������� [id number] THIS REPORT FOR: //name// [facility] Test Date: 2019-01-16 Test Time: 07:36:16 Pat Name: EMMETT BASS Department: Room: 360 P Gender: M Launderette Attendant: Sujata HAWIKNS : 1935 Requested By: Bruce Segovia Order Number: [id number] MD: Adriano Heaton Measurements Intervals [place] Rate: 64 P: [place]: QRS: -65 QRSD: 192 T: 108 QT: 522 QTc: 539 Interpretive Statements Atrial fibrillation Multiple ventricular premature complexes Nonspecific IVCD with LAD Borderline T abnormalities, lateral leads Compared to ECG 06/09/2017 15:33:58 No significant change was found Electronically Signed On 01-18-2019 7:59:27 CDT by Adriano Heaton [email or web address] ��������������������������������������������� <ELECTRONICALLY SIGNED> ���������������������������������������� By: Adriano Heaton MD, [facility] ��������������������������������������������� 01/18/19 0759 0736 0736 Adriano Heaton MD, [facility] /EPI
--- NOTE | 2019-01-18 09:40 | NUR ---
ASSESSMENT: CM REVIEWED CHART AND MET WITH PATIENT AND HIS MARGARITA AT THE BEDSIDE. PT WAS ADMITTED WITH CHF EXACERBATION. PT REPORTS HE LIVES IN A HOUSE WITH HIS . PT REPORTS 2 STEPS WITH A HANDRAIL TO ENTER AND NO STEPS HE HAS TO USE ONCE INSIDE. PT REPORTS NORMALLY USING HIS ROLLATER WALKER BUT ALSO HAS A CANE. PT REPORTS HAVING MULTIPLE GRAB BARS IN THE SHOWER. PT STATES HE HAS A HOME CPAP. PT REPORTS HE HAS HAD HH IN THE PAST BUT UNSURE THE AGENCY. CM DISCUSSED ROLE. PT DOES NOT FEEL HE NEEDS HH AT DISCHARGE. PHYSICAL THERAPY SAW PATIENT AND RECOMMENDING HOME VS HOME WITH HH AND PT DOES NOT FEEL ITS NECESSARY AND IS SUPPORTIVE. CM WILL CONTINUE TO FOLLOW TO ASSIST NEEDED.
[2019-01-18 11:23] VITALS: BP 106/63
[2019-01-18] MEDS ORDERED: TORSEMIDE20 MG PO (13:03)
[2019-01-18] MEDS ORDERED: FLORANEX GRANU1 EACH PO (13:03)
[2019-01-18] MEDS ORDERED: DOXYCYCLINE 10100 M1 PO (13:03)
[2019-01-18] MEDS ORDERED: IPRAT-ALBUT 0.5-3 ML INH (13:03)
[2019-01-18 14:08] VITALS: BP 106/63
--- NOTE | 2019-01-18 14:57 | NUR ---
PT ALERT AND ORIENTED TIMES FOUR. VSS, 98%RA, SR ON TELE. PT DENIES PAIN/SOA. PT UP SITTING IN THE FOR MOST OF THE SHIFT. PT TOLERATES MEDS AND MEALS. PT AT BEDSIDE. PT PROGRESSIN CRISTAL POC GOALS.
== END 2019-01-18 15:14 | disposition home or self-care (01) | DRG 291 ==
LOC: ER 13:06 → 3W 16:08 → EROBS 16:08 → 3W 17:59
PROVIDERS: Emergency Medicine; ADMIT Internal Medicine
PROC: 5A09357 Assistance with Respiratory Ventilation, Less than 24 Consecutive Hours, Continuous Positive Airway Pressure (ICD-10-PCS; principal; 2019-01-15)
DX: I50.23 Acute on chronic systolic (congestive) heart failure (principal); J96.21 Acute and chronic respiratory failure with hypoxia; J18.1 Lobar pneumonia, unspecified organism; N17.9 Acute kidney failure, unspecified; I13.0 Hypertensive heart and chronic kidney disease with heart failure and stage 1 through stage 4 chronic kidney disease, or unspecified chronic kidney disease; I25.5 Ischemic cardiomyopathy; I48.2 Chronic atrial fibrillation; M19.90 Unspecified osteoarthritis, unspecified site; G47.33 Obstructive sleep apnea (adult) (pediatric); E66.01 Morbid (severe) obesity due to excess calories; E78.5 Hyperlipidemia, unspecified; N18.9 Chronic kidney disease, unspecified; I35.0 Nonrheumatic aortic (valve) stenosis; Z96.653 Presence of artificial knee joint, bilateral; E03.9 Hypothyroidism, unspecified; G89.29 Other chronic pain; M54.5 Low back pain; Z88.5 Allergy status to narcotic agent; Z68.39 Body mass index [BMI] 39.0-39.9, adult; Z88.8 Allergy status to other drugs, medicaments and biological substances; Z90.49 Acquired absence of other specified parts of digestive tract; Z95.810 Presence of automatic (implantable) cardiac defibrillator; Z87.891 Personal history of nicotine dependence; Z79.899 Other long term (current) drug therapy
CPT/HCPCS: 10879

== ENCOUNTER → 2019-07-27 | Outpatient (CLI) | payer OTHER ==
[~2019-07-27] MED LIST changes: +DOXYCYCLINE 10100 M1 PO; +FLORANEX GRANU1 EACH PO; +IPRAT-ALBUT 0.5-3 ML INH
== END ==
LOC: SJCVCIMAG 09:55
DX: I35.0 Nonrheumatic aortic (valve) stenosis (principal); I42.8 Other cardiomyopathies; I48.21 Permanent atrial fibrillation; Z95.810 Presence of automatic (implantable) cardiac defibrillator; E78.00 Pure hypercholesterolemia, unspecified; I48.91 Unspecified atrial fibrillation; G47.33 Obstructive sleep apnea (adult) (pediatric); I47.2 Ventricular tachycardia; I36.1 Nonrheumatic tricuspid (valve) insufficiency; I34.0 Nonrheumatic mitral (valve) insufficiency; D68.59 Other primary thrombophilia

== ENCOUNTER 2019-09-15 13:52 | Inpatient (IN) | payer OTHER ==
[~2019-09-15] VITALS: Ht 177.8 cm; Wt 113.0 kg
--- NOTE | ~2019-09-15 | HC ---
[facility] [place] [address] CONSULTATION Name: EMMETT BASS Room #: 203-P ADM IN M.R.#: [id number] Admission: 09/15/19 Attend Phys: Guillermo Awan MD Discharge: Date of : 35 Report #: [id number] THIS REPORT FOR: cc: Charlie Mcfarlane MD, David A. MD Al-Absi,Ashwin Echavarria MD ~ CC: Charlie Awan REASON FOR CONSULTATION: Chronic kidney disease. REASON FOR PRESENTATION: Confusion. HISTORY OF PRESENT ILLNESS: This is an 84-year-old with well-documented history of chronic kidney disease. He sees Dr. Be in our clinic. Baseline creatinine is anywhere from 2.5-3. I had seen him back in 2017. He has extensive past medical history including and not limited to cardiomyopathy. The patient's overall condition has been deteriorating. Dr. Be has related to me that the patient has been having some issues with fluid overload and there had been some adjustment of his diuretics recently. His noticed some confusion in the last couple of days and brought the patient for further evaluation. also related to the Emergency Room that the patient has not been functioning appropriately with some slurred speech and whole list of other issues. She also reported that the patient has been having some issues with his oral intake. On presentation to the Emergency Room, the patient as expected was found to have elevated BUN and creatinine with some mild hyperkalemia and mild hyponatremia mandating a Nephrology consultation. PAST MEDICAL HISTORY: 1. Bilateral knee replacement. 2. Chronic kidney disease, baseline creatinine is anywhere from 2.5-3. 3. Cardiomyopathy with an ejection fraction in the 20%. 4. Severe mitral regurgitation. 5. Severe tricuspid regurgitation. 6. Moderate aortic regurgitation and stenosis. 7. Obstructive sleep apnea. 8. Status post ICD. 9. Tonsillectomy. 10. Enlarged prostate. MEDICATIONS: 1. Levothyroxine. 2. Spironolactone. 3. Bystolic. 4. Torsemide. ALLERGIES: OXYCODONE AND TIZANIDINE. [facility] [address] [place] [address] CONSULTATION Name: SHELIAEMMETT Room #: 203-P [facility] IN ..#: [id number] Admission: 09/15/19 Attend Phys: Guillermo Awan MD Discharge: Date of : 35 Report #: [id number] SOCIAL HISTORY: He is an ex-smoker. No drug or alcohol abuse. Lives with his . REVIEW OF SYSTEMS: GENERAL: No fever or chills, but significant weakness and lethargy. CARDIOVASCULAR: Significant for shortness of breath. PULMONARY: No cough or hemoptysis. GASTROINTESTINAL: No nausea or vomiting, but decreased oral intake. MUSCULOSKELETAL: Occasional back pain and leg pain. NEUROLOGICAL: Significant for weakness, confusion, limited mobility. PHYSICAL EXAMINATION: GENERAL: The patient was confused. He was on the CPAP when evaluated this morning. VITAL SIGNS: Blood pressure was 129/92. Blood pressure yesterday was all the way down to 97/53. HEAD AND NECK: No jugular venous distention. CHEST: No crackles. CARDIOVASCULAR: No rub detected. ABDOMEN: Soft and nontender. EXTREMITIES: Lower extremities, no edema. LABORATORY DATA: Reviewed. Sodium is 128, potassium is 5.3, BUN is 99, creatinine is 2.7. White blood cell count 12.9, hemoglobin 13.2, platelets 87. IMPRESSION AND PLAN: 1. Chronic kidney disease at baseline. 2. Hyponatremia. 3. Hyperkalemia. 4. Advanced cardiomyopathy with an estimated ejection fraction of 25% back in 2017. 5. Severe tricuspid regurgitation, mitral regurgitation, aortic regurgitation with some aortic stenosis. RECOMMENDATIONS: 1. From the renal perspective, the patient seems to be at his baseline. It does look like that the patient had some issues with diuresis, culminating into high BUN and mildly elevated creatinine. 2. Agree with the gentle IV fluid hydration. 3. Hold diuretics. 4. Continue to hold blood pressure medications given his hypotension. 5. We will resume his diuretics when deemed necessary. 6. Severe comorbid conditions, limiting his overall progress. [address] [address] CONSULTATION Name: EMMETT BASS Room #: 203-P ADM IN M.R.#: [id number] Admission: 09/15/19 Attend Phys: Guillermo Awan MD Discharge: Date of : 35 Report #: [id number] His condition had been deteriorated as related to me by my associates, Dr. Be and the patient is not a candidate for any heroic or invasive measures. Recommend discussing future and long-term care plans with his family members. By: [id number] [id number] Ashwin Block MD /nt
[2019-09-15 14:02] VITALS: BP 97/53
[2019-09-15 15:07] LABS: HEMATOCRIT 42.9 % (42.0-52.0); HEMOGLOBIN 13.8 gm/dL (14.0-18.0); MCH 32.8 pg (26.0-34.0); MCHC 32.2 g/dL (28.0-37.0); MCV 101.8 fL (80.0-100.0); PLATELET COUNT 97 thou/uL (150-400); RBC 4.21 mil/uL (4.50-6.00); RDW 20.2 % (10.5-14.5); WBC 12.8 thou/uL (4.0-11.0)
[2019-09-15 15:18] LABS: CALCIUM 9.9 mg/dL (8.5-10.1); CREATININE 2.9 mg/dL (0.7-1.3); POTASSIUM 5.4 mmol/L (3.5-5.1)
[2019-09-15 15:27] LABS: MAGNESIUM 2.6 mg/dL (1.8-2.4); TROPONIN-I 0.06 ng/mL (<0.06)
[2019-09-15 15:36] LABS: ANISOCYTOSIS 1+; MACROCYTES 1+; POLYCHROMASIA OCCASIONAL
[2019-09-15 16:03] LABS: URINE BILIRUBIN NEGATIVE (Negative); URINE BLOOD TRACE (Negative); URINE CLARITY CLEAR; URINE COLOR YELLOW; URINE GLUCOSE-RANDOM* NEGATIVE (Negative); URINE KETONES NEGATIVE (Negative); URINE LEUKOCYTES-REFLEX TRACE (Negative); URINE NITRITE-REFLEX NEGATIVE (Negative); URINE PROTEIN (DIPSTICK) NEGATIVE (Negative); URINE SPECIFIC GRAVITY 1.015 (1.005-1.035); URINE UROBILINOGEN 0.2 E.U./dl (0.2-1.0)
[2019-09-15 17:21] VITALS: BP 105/67
[2019-09-15 17:32] VITALS: BP 111/73
[2019-09-15 18:09] LABS: BE(vivo) -4.1 mmol/L (-2 to +3); HCO3 18.8 mmol/L (22.0-26.0); PCO2 28.7 mmHg (35.0-45.0); PO2 69.6 mmHg (80.0-100.0); pH 7.433 (7.360-7.450); sO2 94.7 % (92.0-98.0)
[2019-09-15 18:24] LABS: ALBUMIN 3.7 g/dL (3.4-5.0); DIRECT BILIRUBIN 0.5 mg/dL (<0.1-0.2); TOTAL BILIRUBIN 1.3 mg/dL (<0.1-1.0); TOTAL PROTEIN 7.1 g/dL (6.4-8.2)
[2019-09-15 18:41] VITALS: BP 80/40
[2019-09-15 20:00] VITALS: BP 88/52
[2019-09-15 21:57] VITALS: BP 98/56
[2019-09-16 00:23] VITALS: BP 136/78
[2019-09-16 04:11] LABS: GLYCOHEMOGLOBIN (HGB A1C) 6.1 % (4.8-5.6)
[2019-09-16 04:35] VITALS: BP 129/92
--- NOTE | 2019-09-16 05:18 | NUR ---
PT A&PO TO SELF ONLY. CONFUSED. ABLE TO FOLLOW SOME BASIC COMMANDS. PT HAD CT OF THE ABD AT HS. HAS SLEEP APNEA CPAP NOC. PT IMPULSIVE OVERNITE TAKING DOWN TELE SEVERAL TIMES AND PULLED OUT IV. PT USED URINAL X1 OVERNITE. PT WAS CONT OF URINAL. ISOLATION FOR C-DIFF
[2019-09-16 06:12] LABS: HEMATOCRIT 41.5 % (42.0-52.0); HEMOGLOBIN 13.2 gm/dL (14.0-18.0); MCH 32.7 pg (26.0-34.0); MCHC 31.8 g/dL (28.0-37.0); MCV 102.6 fL (80.0-100.0); PLATELET COUNT 87 thou/uL (150-400); RBC 4.05 mil/uL (4.50-6.00); RDW 20.7 % (10.5-14.5); WBC 12.9 thou/uL (4.0-11.0)
[2019-09-16 06:15] LABS: CREATININE 2.7 mg/dL (0.7-1.3); MAGNESIUM 2.5 mg/dL (1.8-2.4); POTASSIUM 5.3 mmol/L (3.5-5.1); TROPONIN-I 0.07 ng/mL (<0.06)
[2019-09-16 06:35] LABS: CHOLESTEROL 120 mg/dL (<200); HDL CHOLESTEROL 15 mg/dL (>40); LDL CHOLESTEROL 87 mg/dL (<100); TRIGLYCERIDE 90 mg/dL (<150); VLDL 18 mg/dL (<40)
[2019-09-16 06:36] LABS: SERUM ASSESSMENT Clear
--- NOTE | 2019-09-16 06:51 | NUR ---
DR ALMEIDA CALLED ASKED DO A BLADDER SCANNER FOR THE PT. BLADDER SCAN COMPLETED. RESULT 59. PT VOIDED URINE X1 AT OVERNIGHT 250CC
[2019-09-16 07:25] VITALS: BP 127/86
[2019-09-16 09:27] LABS: ABSOLUTE NEUTROPHILS 8.3 thou/uL (1.4-8.2); ANISOCYTOSIS 1+; MACROCYTES 1+; PLATELET ESTIMATE DECREASED
--- NOTE | 2019-09-16 10:52 | NUR ---
WOUND CONSULT; THE WOUNDS BILATERALLY HAVE CLEAN WOUNDBEDS WITH BEEFY RED TISSUE. THIS PATIENT HAS HYPER-FRAGILE SKIN. NO S/S OF INFECTION. RECOMMENDATION; XEROFORM,GAUZE SECURE WITH KERLIX OR TUBIGRIP RN PRESENT
--- NOTE | 2019-09-16 13:25 | NUR ---
Case opened to follow for dc planning. Chart reviewed and case discussed with the care team. Deployment Engineer visited with the pt's this morning. Pt has been more confused, forgetful and admitted with enceph, ARF and NICM. Pt's reports that he had been getting around with his walker until a few days and he has not been eating and weak and more confused. They live in a ranch style home with 2 steps to enter. He has a rolator walker, cane, grab bars and cpap. They live in [place], [place] and had hh a few years ago with [facility]. The pt has a complex medical history and his is concerned that he may need SNF stay at dc. They are familiar with [facility] in [place] and that would be their first choice as it is a couple of blocks from the house. She is open to hh as well if he is able to return directly home. Therapy evals are pending. Dc timeframe is uncertain. Will initiate referral to [facility].
[2019-09-16 13:50] VITALS: BP 118/70
--- NOTE | 2019-09-16 16:35 | NUR ---
FAXED REFERRAL TO [facility] IN [place] SPOKE WITH JOCELYN MENA) AND THEY DO NOT HAVE A BED AVAILABLE AT THIS TIME AND DID NOT KNOW WHEN ONE WILL BECOME AVAILABLE. DP TO FOLLOW.
--- NOTE | 2019-09-16 19:23 | NUR ---
PT ALERT AND ORIENTED TO SELF. VERY CONFUSED. VSS. UP IN THE CHAIR THIS SHIFT. FALL PRECAUTION IN PLACE. NEW ORDERS NOTED. WILL CONTINUE TO MONITOR.
[2019-09-16 19:51] VITALS: BP 105/74
--- NOTE | 2019-09-17 04:15 | NUR ---
Assumed care of this pt. at 2330 on 09/16/19. He has been alert and only oriented to self. Unable to reorient this pt. He keeps asking the same questions over and over. Pt. is also restless at times and will yell out. I placed two iv's in which he has also pulled out. Pt. will not leave his monitor leads on. He also has been observed pulling at his olivia catheter. I called Robyn HAMPTON and she was notified and orders for mittts. The mitts were placed, but about 10 minutes later he had them off and pulled out his iv. Pt. is now in soft wrist restraints per order. Catheter and wagner care given. Bed alarm is on.
[2019-09-17 05:00] VITALS: BP 107/71
[2019-09-17 05:41] LABS: HEMATOCRIT 41.7 % (42.0-52.0); HEMOGLOBIN 13.1 gm/dL (14.0-18.0); MCH 32.4 pg (26.0-34.0); MCHC 31.5 g/dL (28.0-37.0); RBC 4.05 mil/uL (4.50-6.00); RDW 21.5 % (10.5-14.5)
[2019-09-17 06:00] LABS: ALBUMIN 3.5 g/dL (3.4-5.0); CALCIUM 9.4 mg/dL (8.5-10.1); CREATININE 2.6 mg/dL (0.7-1.3); POTASSIUM 5.5 mmol/L (3.5-5.1); TOTAL BILIRUBIN 2.5 mg/dL (<0.1-1.0); TOTAL PROTEIN 6.2 g/dL (6.4-8.2)
[2019-09-17 07:15] VITALS: BP 125/94
--- NOTE | 2019-09-17 08:25 | NUR ---
CALLED AND NOTIFIED OF RESTRAINTS.
--- NOTE | 2019-09-17 09:16 | EKG ---
[facility] [place] [address] ELECTROCARDIOGRAM REPORT Name: EMMETT BASS Room #: 203-P ADM IN M.R.#: [id number] Admission: 09/15/19 Attend Phys: Guillermo Awan MD Discharge: Date of : 35 Report #: [id number] THIS REPORT FOR: cc: Charlie Mcfarlane MD, David A. MD Lundgren,Adriano Hassan MD [facility] ~ THIS REPORT FOR: //name// [facility] ED Test Date: 2019-09-15 Test Time: 15:13:09 Pat Name: EMMETT BASS Department: Room: [facility] Gender: M Bolt Labeler: SHYANNE : 1935 Requested By: Castillo Baker Order Number: [id number] MD: Adriano Heaton Measurements Intervals [place] Rate: 67 P: MT: QRS: -63 QRSD: 182 T: 114 QT: 474 QTc: 501 Interpretive Statements Atrial fibrillation Nonspecific IVCD with LAD Compared to ECG 01/16/2019 07:36:16 Ventricular premature complex(es) no longer present Electronically Signed On 09-17-2019 9:15:26 GLASS ROLLING MACHINE OPERATOR by Adriano Heaton [email or web address] <ELECTRONICALLY SIGNED> By: Adriano Heaton MD, [facility] 09/17/19 0915 1513 1513 Adriano Heaton MD, [facility] /EPI
--- NOTE | 2019-09-17 14:33 | NUR ---
[facility] will not have a snf bed available per their DON. Pt's updated. Pt had rough night and the attending meet with his spouse this am to discuss his overall prognosis and plan of care. Pt is now a DNR per his wishes. Outside the hospital DNR form provided to pt's as she is his dpoa. They will review it and return it to for phsyician signature. She would like to have a referral sent to [facility] in [place], [place]. [facility] spoke with [facility] in admissions and she indicates they would have a snf bed available on Friday and then could consider him for ltc after. updated and given cost of$154 a day for semi private room for ltc. Pt's reports that they do have a ltc policy as well when needed. Nc turnaround planner to fax SNF referral to [facility] at [phone]. Her phone number is [phone]. Pt's indicates that they have talked a little bit about hospice care in the future should the pt continue to decline. Support provided. 124C will need to be completed and sent with the pt at mi.
--- NOTE | 2019-09-17 15:14 | NUR ---
FAXED REFERRAL TO [facility] RECEIVED CONFIRMATION AND SPOKE WITH INTAKE AND THEY RECEIVED REFERRAL ABBY WAS SPEAKING WITH JANNETTE HAGAN AT THE TIME. DC BOX MACHINE OPERATOR TO FOLLOW.
--- NOTE | 2019-09-17 16:08 | NUR ---
ASSESSMENT CHARTED. PT ALERT AND ORIENTED X2 WITH FORGETFULLNESS. RESTRAINS D/C. AT THE BEDSIDE. CODE STATUS AND ADMISSION STATUS CHANGED. FALL PRECAUTION IN PLACE. WILL CONTINUE TO MONITOR.
[2019-09-17 20:12] VITALS: BP 113/76
--- NOTE | 2019-09-18 02:14 | NUR ---
ASSESSMETN: PT REMAIN ALERT AND ORIENT TIMES ONE. DOES NOT KNOW WHERE HE IS AT, NOR WHAT THE SITUATION IS. DOES NOT FOLLOW COMMANDS WELL. VERY CAMPO. POSSINBLE DC TO [facility] TOMORROW. VSS, AFEBRILE. PACER LOCATED IN LEFT SIDE CHEST. NOT ON MONITOR. MS PT. CHRISTIAN PATENT WITH BLOOD TINGE UO. ONE SMALL BM SMEAR. ON HOME CPAP. SPOT CHECKED FOR O2 SATS R/T PT CONTINUOUSLY PULLING OFF PROBE. POOR PROGRESS TOWARDS DC GOALS, WILL CONTINUE TO MONITOR.
[2019-09-18 04:00] VITALS: BP 109/68
[2019-09-18 05:19] LABS: ALBUMIN 3.4 g/dL (3.4-5.0); CALCIUM 9.3 mg/dL (8.5-10.1); CREATININE 2.5 mg/dL (0.7-1.3); PHOSPHORUS 4.6 mg/dL (2.5-4.9); POTASSIUM 5.5 mmol/L (3.5-5.1)
[2019-09-18 07:45] VITALS: BP 105/68
--- NOTE | 2019-09-18 16:50 | NUR ---
ASSUMED CARE 0700. ALERT TO SELF AND PLACE. CALM AND COMPLIANT WITH CARES, MAX ASSIST.PT UNABLE TO DEMONSTRATE CALL LIGHT. TUBE GRIB APPLIED TO LEFT ARM OVER DRESSING. BEDSIDE THIS SHIFT FOR MEALS AND ASSISTING. NO BM NOTED TODAY. CHRISTIAN CATHETER IN PLACE. PT NOT ON TELE. MED TAKEN WITH APPLE SAUCE. NO WILLIS ACCESS. PLANS TO DC TO LTC ON FRIDAY. FALL PRECATIONS IN PLACE.
[2019-09-18 20:09] VITALS: BP 147/75
--- NOTE | 2019-09-19 01:56 | NUR ---
ASSUMED CARE FROM DAY SHIFT PT ALERT TO SELF ONLY, YELLING OUT, DENIES PAIN, CPAP ON SAY 98 % CHRISTIAN TO DD WITH CLOUDY URINE NOTED.PT CONITUNE TO RE-OPRIENT PT, ABLE TO EAT PUDDING , PT BACK REMANIN AWAKE THROUGOUT HORLY ROUNDS.
[2019-09-19 06:15] VITALS: BP 120/84
--- NOTE | 2019-09-19 08:38 | NUR ---
DURING ROUNDING PATIEN WAS FOUND UNRESPONSIVE,NO PULSE OR HEART BEAT NOTED. CONTACTED AND NOTIFIED INSURANCE CLAIMS ASSISTANT, DR RODRIGUEZ, AND . NOTIFIED [employer]. TIME OF 729.
== END 2019-09-19 10:21 | DRG 682 ==
LOC: ER 13:52 → 2N 16:56 → EROBS 16:56 → 2N 17:58
PROVIDERS: Emergency Medicine; Hospitalist; Nurse Practitioner; ADMIT Internal Medicine
PROC: 5A09457 Assistance with Respiratory Ventilation, 24-96 Consecutive Hours, Continuous Positive Airway Pressure (ICD-10-PCS; principal; 2019-09-15)
PROC: 5A09357 Assistance with Respiratory Ventilation, Less than 24 Consecutive Hours, Continuous Positive Airway Pressure (ICD-10-PCS; 2019-09-18)
DX: N17.9 Acute kidney failure, unspecified (principal); G92 Toxic encephalopathy; J96.21 Acute and chronic respiratory failure with hypoxia; J96.22 Acute and chronic respiratory failure with hypercapnia; E87.1 Hypo-osmolality and hyponatremia; I13.0 Hypertensive heart and chronic kidney disease with heart failure and stage 1 through stage 4 chronic kidney disease, or unspecified chronic kidney disease; I50.22 Chronic systolic (congestive) heart failure; I48.21 Permanent atrial fibrillation; E72.20 Disorder of urea cycle metabolism, unspecified; R18.8 Other ascites; N18.9 Chronic kidney disease, unspecified; Z96.653 Presence of artificial knee joint, bilateral; Z96.612 Presence of left artificial shoulder joint; Z96.611 Presence of right artificial shoulder joint; G89.29 Other chronic pain; M54.9 Dorsalgia, unspecified; R41.0 Disorientation, unspecified; G47.33 Obstructive sleep apnea (adult) (pediatric); N40.0 Benign prostatic hyperplasia without lower urinary tract symptoms; E86.0 Dehydration; E87.5 Hyperkalemia; E03.9 Hypothyroidism, unspecified; F03.90 Unspecified dementia, unspecified severity, without behavioral disturbance, psychotic disturbance, mood disturbance, and anxiety; K72.90 Hepatic failure, unspecified without coma; K76.0 Fatty (change of) liver, not elsewhere classified; E66.01 Morbid (severe) obesity due to excess calories; M54.5 Low back pain; I08.3 Combined rheumatic disorders of mitral, aortic and tricuspid valves; G47.00 Insomnia, unspecified; D53.9 Nutritional anemia, unspecified; D72.829 Elevated white blood cell count, unspecified; R59.1 Generalized enlarged lymph nodes; I25.5 Ischemic cardiomyopathy; Z95.810 Presence of automatic (implantable) cardiac defibrillator; Z98.42 Cataract extraction status, left eye; Z98.41 Cataract extraction status, right eye; Z88.6 Allergy status to analgesic agent; Z88.8 Allergy status to other drugs, medicaments and biological substances; Z87.891 Personal history of nicotine dependence; Z82.49 Family history of ischemic heart disease and other diseases of the circulatory system; Z68.35 Body mass index [BMI] 35.0-35.9, adult; Z90.49 Acquired absence of other specified parts of digestive tract
CPT/HCPCS: 10081